=== PATIENT | female | born 1950 | race Caucasian/White ===

== ENCOUNTER 2025-04-16 12:50 | Inpatient (IN) ==
--- NOTE | 2025-04-16 13:25 | XRay Report ---
XR chest 1V portable CLINICAL HISTORY: Chest pain, nonspecific COMPARISON STUDY: None FINDINGS: Thoracic spine neurostimulator is present. There is moderate cardiomegaly without pulmonary vascular congestion. There is bandlike opacity at the left mid to lower lung. No other consolidation or pleural effusion. No pneumothorax. IMPRESSION: Opacity at the left mid and lower lung could represent scarring, atelectasis, or early p neumonia. ACT 112: Negative or not required by law. Electronically signed by: Bj King M.D. 04/16/2025 1:24 PM
--- NOTE | 2025-04-16 13:41 | Emergency Department Note ---
Impression & Plan Atrial fibrillation with rapid ventricular response, Pneumonia, Elevated troponin I level, Acute exacerbation of CHF (congestive heart failure), Acute and chronic respiratory failure, Hypoalbuminemia, Chronic hyperglycemia ED Provider Note NAME: OPAL SORENSEN AGE: 75 SEX: F : 1950 ARRIVES VIA: Ambulance INFORMANT: Patient, EMS ED PROVIDER(S): Rm Watts DO CHIEF COMPLAINT: atrial fibrillation HPI: This is a 75-year-old female with the PMHx of hypertension, dyslipidemia, COPD, CKD and paroxysmal atrial fibrillation on chronic anticoagulation with apixaban and rate/rhythm control with sotalol presenting to [facility] for further evaluation of atrial fibrillation with RVR. Patient is accompanied by EMS who provide additional history. EMS reported the patient is currently residing at rehabilitation services after she had a fall with subsequent tibia/fibular fractures. Patient currently in a walking boot. Patient states that she has taken sotalol for a prolonged period of time. She states that she had multiple ablations performed at [facility]. Patient states that since she has been at the rehabilitation facility, they have not given her her sotalol. She states that she noted she was not feeling well today and they found her to be in atrial fibrillation with RVR. Patient reports mild shortness of breath. She reports ongoing cough as well as congestion. Patient states she was recently treated for pneumonia. She states that she feels like she has not improved. She is unsure if she is currently on antibiotics. They deny fever or chills. She denies chest pain but does note chest palpitation secondary to her atrial fibrillation. They deny abdominal pain, nausea and vomiting. No urinary complaints. No recent changes in bowel movements. Patient denies recent changes in medications or OTC supplements. Patient offers no other complaints, today. ADDITIONAL HISTORY OBTAINED: Per HPI Chronic Medical/Social Conditions Affecting Care: Per HPI PAST MEDICAL HISTORY: See Below PAST SURGICAL HISTORY: See Below FAMILY HISTORY: See Below SOCIAL HISTORY: See Below HOME MEDICATIONS: See Below ALLERGIES: See Below VITALS: See Below PHYSICAL EXAMINATION: GENERAL: Sitting up in bed, alert, well appearing, well nourished, no distress, non-toxic EYE EXAM: normal conjunctiva. PERRL and EOM's grossly intact. OROPHARYNX: no exudate, no erythema, lips, buccal mucosa, and tongue normal and mucous membranes are moist NECK: supple, no nuchal rigidity, no adenopathy, non-tender LUNGS: Clear to auscultation. Normal chest wall mechanics HEART: no murmurs, tachycardic rate, irregular rhythm ABDOMEN: abdomen soft, non-tender, no masses, no rebound or guarding. BACK: Back is symmetrical on inspection and there is no deformity, no midline tenderness, no CVA tenderness. SKIN: no rashes. Numerous areas of bruising in various stages of healing. UPPER EXTREMITIES: upper extremities are grossly normal. LOWER EXTREMITIES: Bilateral lower extremity edema. Right lower extremity is in walking boot. NEURO EXAM: Normal sensorium, GCS 15, normal speech, no gross weakness of arms, no gross weakness of legs. MEDICAL DECISION MAKING: Differential diagnoses includes but not limited to atrial fibrillation with RVR, SVT, electrolyte derangements, dehydration, CHF exacerbation, COPD exacerbation, pneumonia, viral URI In summary, this is a 75 year old female who presented with atrial fibrillation with RVR. Differential as above. Nursing notes and pertinent past medical records reviewed. Vital signs reviewed and the patient is borderline hypotensive as well as significantly tachycardic. She is otherwise afebrile and hemodynamically stable. Patient's oxygenation status has been intermittently hypoxic. Patient does note that she wears oxygen at nighttime. Low-flow nasal cannula was applied with improvement. History and presentation revealed recent fall with rehabilitation admission for ambulatory status and difficulties with ADLs. Unfortunately, the patient's facility did not restart her sotalol and now she presents with atrial fibrillation with RVR. This has been a medication for her for a prolonged period of time. Notes that dose was increased in September to 120 mg twice daily. Physical examination revealed as above. As a result of my initial evaluation, the patient presents in atrial fibrillation with mild evidence of hypervolemia. Possible CHF exacerbation given her poor rate control. Plan for labs and checking electrolytes. Will also check chest x-ray. Patient has mild oxygen requirement at this time. Likely acute on chronic hypoxemic respiratory failure. Will give the patient a dose of Cardizem as she has already tried metoprolol at home without success. Patient has now been at least a week without sotalol. Patient will likely need to restart this as an inpatient given risk of QTc prolongation. Plan to discuss this further with cardiology. Diagnostics interpreted by me include EKG and cardiac monitoring as listed below: -Cardiac Monitoring: An order was placed for continuous cardiac monitoring. The monitor shows a rate of 90-150s with irregular rhythm. -ECG: Atrial fibrillation with RVR at a rate of [address] segment changes to suggest STEMI. Intervals are within normal limits Patient completed laboratory studies and imaging. Results independently interpreted by me are mild leukocytosis and anemia. Patient's coagulation studies are normal. No significant electrolyte derangements. Hypoalbuminemia noted. Patient does have an elevated BNP fitting with picture of hypervolemia. Troponin is mildly elevated but likely secondary to her atrial fibrillation with RVR. Patient does not have symptoms of angina. Do not feel that aspirin load or further evaluation for this is necessary at this time. The patient was initially given a loading dose of Cardizem and then subsequently started on a Cardizem drip. She had improvement in her rate but continues in atrial fibrillation. Spoke with Dr. Sanchez at 1410 regarding sotalol. Restart at 80 mg BID recommending with QTc monitoring. Patient was given her first dose of sotalol while in the emergency department. Patient's chest x-ray was independently interpreted by me as possible pneumonia. This fits with her mild leukocytosis and symptoms at this time. She was given doxycycline and ceftriaxone. Azithromycin avoided given risk of QTc prolongation. Ultimately, the decision was made to admit the patient for poorly controlled atrial fibrillation with RVR with possible mild heart failure exacerbation complicated by acute on chronic hypoxemic respiratory failure. I discussed the case with the hospitalist service via telephone/Tiger[employer] and they are agreeable to admit the patient to their services. Based on the above, including the patient's age, coexisting illnesses, labs, imaging, and exam findings the decision to treat as an inpatient. I discussed the patient with the hospitalist team who recommended admission to their services. They received the medications, treatments, interventions indicated above and their condition remained guarded. I discussed my findings with the patient and their family and they understand and agree with the treatment plan. All patient / family questions were answered to their satisfaction. Consults/Care Managements Discussions: Per MDM ER treatment provided: See above Procedures:none Critical Care: I have personally spent 42 minutes of critical care time in direct management of this patient. This includes bedside care, interpretation of diagnostic studies, and testing, discussion with consultants, patient, and family members, and other require inpatient management activities. This 42 minutes is in excess of all separately billable procedures. The chart was completed utilizing [employer] Speech voice recognition software. Grammatical errors, random word insertions, pronoun errors, and incomplete sentences are an occasional consequence of this system due to software limitations, ambient noise, and hardware issues. Any formal questions or concerns about the content, text, or information contained within the body of this dictation should be directly addressed to the physician for clarification. Past Med/Surg History Problem List (Updated 04/16/25 @ 17:52 by Rm Watts DO) Chronic hyperglycemia (Acute) Hypoalbuminemia (Acute) Acute and chronic respiratory failure (Acute) Acute exacerbation of CHF (congestive heart failure) (Acute) Elevated troponin I level (Acute) CKD (chronic kidney disease) COPD (chronic obstructive pulmonary disease) Dyslipidemia, goal LDL below 100 HTN (hypertension) Pneumonia (Acute) Atrial fibrillation with rapid ventricular response (Acute) Social History Smoking Status: Former smoker Tobacco Type: Cigarettes Preferred Language: Estonian Feels Safe at Home: Yes Allergies Allergies Allergy/AdvReac Type Severity Reaction Status Date / Time adhesive tape Allergy Intermediate SKIN Verified 04/16/25 16:17 BLISTERED latex Allergy Intermediate SKIN Verified 04/16/25 16:17 BLISTERED furosemide [From Lasix] Allergy Unknown SEE COMMENT Verified 04/16/25 16:17 duloxetine AdvReac Intermediate Vomiting Verified 04/16/25 16:17 Home Meds Home Medications Medication Instructions Recorded Confirmed Saccharomyces boulardii 250 mg 500 mg PO BID 04/16/25 04/16/25 capsule (Florastor) acetaminophen 325 mg tablet 650 mg PO Q4H PRN Pain (Scale 04/16/25 04/16/25 (Tylenol) Score 1-3) acetaminophen 500 mg tablet 500 mg PO Q4H PRN FEVER >100.5 04/16/25 04/16/25 (Tylenol Extra Strength) albuterol sulfate 2.5 mg/3 mL 2.5 mg inhalation Q6H PRN Wheezing 04/16/25 04/16/25 (0.083 %) solution for nebulization apixaban 5 mg tablet (Eliquis) 5 mg PO BID 04/16/25 04/16/25 aspirin 81 mg tablet,delayed 81 mg PO DAILY 04/16/25 04/16/25 release bisacodyl 10 mg rectal suppository 10 mg MS DAILY PRN Constipation 04/16/25 04/16/25 bumetanide 2 mg tablet 2 mg PO DAILYBB 04/16/25 04/16/25 cholecalciferol (vitamin D3) 50 50 mcg PO DAILY 04/16/25 04/16/25 mcg (2,000 unit) capsule (Vitamin D3) dextromethorphan-guaifenesin 30 1 tab PO Q12H 04/16/25 04/16/25 mg-600 mg tablet extended [id number] hr (Mucinex DM) diclofenac sodium 1 % topical gel 2 g topical TID 04/16/25 04/16/25 docusate sodium 100 mg capsule 100 mg PO BID PRN Constipation 04/16/25 04/16/25 empagliflozin 10 mg tablet 10 mg PO DAILY 04/16/25 04/16/25 (Jardiance) fluticasone fur. 200 mcg-umeclid 1 inh inhalation DAILY 04/16/25 04/16/25 62.5 mcg-vilant 25 mcg inhalat.powder (Trelegy Ellipta) folic acid 1 mg tablet 1 mg PO DAILY 04/16/25 04/16/25 gabapentin 300 mg capsule 300 mg PO BID 04/16/25 04/16/25 insulin aspart U-100 100 unit/mL 1 sliding scale dose subcut ACHS 04/16/25 04/16/25 subcutaneous solution (Novolog PRN BSG CONTROL U-100 Insulin aspart) ipratropium 0.5 mg-albuterol 3 mg 3 ml inhalation QID 04/16/25 04/16/25 (2.5 mg base)/3 mL nebulization soln losartan 25 mg tablet 25 mg PO DAILY 04/16/25 04/16/25 magnesium oxide 400 mg PO BID 04/16/25 04/16/25 melatonin 3 mg tablet 9 mg PO HS 04/16/25 04/16/25 montelukast 10 mg tablet 10 mg PO PM 04/16/25 04/16/25 (Singulair) multivitamin 1 tab PO DAILY 04/16/25 04/16/25 ondansetron HCl 4 mg tablet 4 mg PO Q6H PRN NAUSEA/VOMITING 04/16/25 04/16/25 pantoprazole 40 mg tablet,delayed 40 mg PO DAILYBB 04/16/25 04/16/25 release polyethylene glycol 3350 17 17 g PO QDL PRN Constipation 04/16/25 04/16/25 gram/dose oral powder (Miralax) potassium chloride 20 mEq 20 meq PO DAILY 04/16/25 04/16/25 tablet,extended release(part/cryst) prednisone 10 mg tablet 10 mg PO DIRECTED 04/16/25 04/16/25 sennosides 8.6 mg-docusate sodium 1 tab-cap PO QDL PRN Constipation 04/16/25 04/16/25 50 mg tablet (Senokot-S) sodium chloride 0.9 % (flush) 5 ml IV Q8H 04/16/25 04/16/25 (Normal Saline Flush 0.9 % injection syringe) sodium phosphates 19 gram-7 118 ml MS DAILY PRN Constipation 04/16/25 04/16/25 gram/118 mL enema (Fleet Enema) thiamine HCl (vitamin B1) 100 mg 100 mg PO DAILY 04/16/25 04/16/25 tablet (Vitamin B-1) tramadol 50 mg tablet 50 mg PO Q12H PRN Pain (Scale 04/16/25 04/16/25 Score 4-10) triamcinolone acetonide 0.1 % 1 applic topical BID PRN Rash 04/16/25 04/16/25 topical cream Results & Data (ED) Vital Signs Vital Signs - 24 hr 04/16/25 12:58 04/16/25 12:58 04/16/25 12:58 Temperature 37.0 C Temperature Source Oral Pulse Rate 135 H Pulse Rate [Apical] Respiratory Rate 16 Respiratory Effort / Characteristics Non-Labored Spontaneous Non-Labored Spontaneous Respiratory Depth Normal Blood Pressure 150/126 H Blood Pressure Mean 134 Pulse Oximetry 97 88 L Oxygen Delivery Method Nasal Cannula Nasal Cannula Nasal Cannula Oxygen Flow Rate 2 2 0 Sepsis Recent Fever Within 48 Hours No Sepsis New/Unexplained Change in Mental Status No Sepsis Action Taken by Nursing No Action Required Oxygen Flow Rate - Titration 2 Pulse Oximetry Post Tiitration 97 04/16/25 12:58 04/16/25 12:58 04/16/25 13:31 Temperature Temperature Source Pulse Rate 135 H 129 H Pulse Rate [Apical] 135 H Respiratory Rate 16 16 Respiratory Effort / Characteristics Respiratory Depth Blood Pressure Blood Pressure Mean Pulse Oximetry 97 97 Oxygen Delivery Method Nasal Cannula Nasal Cannula Oxygen Flow Rate 2 2 Sepsis Recent Fever Within 48 Hours Sepsis New/Unexplained Change in Mental Status Sepsis Action Taken by Nursing Oxygen Flow Rate - Titration Pulse Oximetry Post Tiitration 04/16/25 13:38 04/16/25 13:38 04/16/25 13:41 Temperature Temperature Source Pulse Rate 135 H 144 H Pulse Rate [Apical] Respiratory Rate 16 19 Respiratory Effort / Characteristics Respiratory Depth Blood Pressure 97/64 L Blood Pressure Mean 75 Pulse Oximetry 88 L 97 97 Oxygen Delivery Method Nasal Cannula Nasal Cannula Oxygen Flow Rate 0 2 Sepsis Recent Fever Within 48 Hours Sepsis New/Unexplained Change in Mental Status Sepsis Action Taken by Nursing Oxygen Flow Rate - Titration 2 Pulse Oximetry Post Tiitration 97 04/16/25 13:45 04/16/25 14:19 04/16/25 14:27 Temperature Temperature Source Pulse Rate 93 H 112 H 115 H Pulse Rate [Apical] Respiratory Rate 20 17 19 Respiratory Effort / Characteristics Respiratory Depth Blood Pressure 101/69 95/64 L 111/68 Blood Pressure Mean 89 68 91 Pulse Oximetry 99 98 98 Oxygen Delivery Method Oxygen Flow Rate Sepsis Recent Fever Within 48 Hours Sepsis New/Unexplained Change in Mental Status Sepsis Action Taken by Nursing Oxygen Flow Rate - Titration Pulse Oximetry Post Tiitration 04/16/25 14:36 04/16/25 14:45 04/16/25 14:47 Temperature Temperature Source Pulse Rate 122 H 103 H 115 H Pulse Rate [Apical] Respiratory Rate 21 20 14 Respiratory Effort / Characteristics Respiratory Depth Blood Pressure 85/65 L 91/69 L 91/69 L Blood Pressure Mean 73 72 76 Pulse Oximetry 98 Oxygen Delivery Method Room Air Oxygen Flow Rate Sepsis Recent Fever Within 48 Hours Sepsis New/Unexplained Change in Mental Status Sepsis Action Taken by Nursing Oxygen Flow Rate - Titration Pulse Oximetry Post Tiitration 04/16/25 15:01 04/16/25 15:15 04/16/25 15:30 Temperature Temperature Source Pulse Rate 107 H 113 H 127 H Pulse Rate [Apical] Respiratory Rate 17 18 16 Respiratory Effort / Characteristics Respiratory Depth Blood Pressure 84/66 L 103/77 111/73 Blood Pressure Mean 75 86 85 Pulse Oximetry 99 97 Oxygen Delivery Method Oxygen Flow Rate Sepsis Recent Fever Within 48 Hours Sepsis New/Unexplained Change in Mental Status Sepsis Action Taken by Nursing Oxygen Flow Rate - Titration Pulse Oximetry Post Tiitration 09/22/25 15:55 Temperature Temperature Source Pulse Rate 115 H Pulse Rate [Apical] Respiratory Rate 19 Respiratory Effort / Characteristics Respiratory Depth Blood Pressure 102/72 Blood Pressure Mean 83 Pulse Oximetry Oxygen Delivery Method Oxygen Flow Rate Sepsis Recent Fever Within 48 Hours Sepsis New/Unexplained Change in Mental Status Sepsis Action Taken by Nursing Oxygen Flow Rate - Titration Pulse Oximetry Post Tiitration Laboratory Data 04/16/25 13:54 04/16/25 13:54 Lab Results 04/16/25 Range/Units 13:54 WBC 12.87 H (4.8-10.8) K/ul RBC 3.48 L (4.20-5.40) M/uL Hgb 11.7 L (12.0-16.0) g/dl Hct 36.8 L (37.0-47.0) % MCV 105.7 H (80.0-100.0) fL MCH 33.6 (25.0-34.0) pg MCHC 31.8 L (32.0-36.0) g/dL RDW Std Deviation 56.9 H (36.4-46.3) fL RDW Coeff of Nora 14.8 H (11.5-14.5) % Plt Count 328 (130-400) K/uL MPV 10.9 (9.4-12.4) fL Immature Gran % (Auto) 6.1 % Neut % (Auto) 86.4 % Lymph % (Auto) 3.9 % [place] % (Auto) 2.9 % Eos % (Auto) 0.2 % Baso % (Auto) 0.5 % Neut # (Auto) 11.13 H (1.40-6.50) K/uL Lymph # (Auto) 0.50 L (1.20-3.40) K/uL [place] # (Auto) 0.37 (0.11-0.59) K/uL Eos # (Auto) 0.02 (0.00-0.50) K/uL Baso # (Auto) 0.06 (0.00-0.20) K/uL Immature Gran # (Auto) 0.79 H (0.01-0.20) K/uL Absolute Nucleated RBC 0.11 (0.00-0.12) K/uL Nucleated RBC % (auto) 0.9 % Hypersegmented Neuts 1+ Toxic Vacuolation 1+ Polychromasia 1+ Basophilic Stippling 1+ PT 11.3 (9.0-12.0) Seconds INR 1.0 (0.9-1.1) APTT 25 (21-31) Seconds PTT Ratio 0.9 Sodium 136 (136-145) mmol/L Potassium 4.5 (3.5-5.1) mmol/L Chloride 94 L (98-107) mmol/L Carbon Dioxide 33 H (21-32) mmol/L Anion Gap 9 (3-11) BUN 34 H (6-23) mg/dl Creatinine 0.72 (0.6-1.2) mg/dl Est Cr Clr Drug Dosing 61.3 ml/min eGFR 88.23 BUN/Creatinine Ratio 47.2 H (10-20) Glucose 153 H (70-99(Fasting)) mg/dl Calcium 9.0 (8.6-10.3) mg/dl Phosphorus 3.4 (2.5-4.9) mg/dl Magnesium 2.1 (1.7-2.4) mg/dl Total Bilirubin 0.6 (0.2-1.0) mg/dl AST 24 (13-39) U/L ALT 32 (7-52) U/L Alkaline Phosphatase 77 (34-104) U/L Troponin I High Sens 64.0 H* (0-14) pg/ml B-Natriuretic Peptide 930 H (0-100) pg/ml Total Protein 6.2 (6.0-8.3) gm/dl Albumin 3.3 L (3.4-5.0) gm/dl Globulin 2.9 (2.5-4.0) gm/dl Albumin/Globulin Ratio 1.1 (0.9-2) Lipase 42 (11-82) U/L Administered Medications Diltiazem HCl 125 mg/ Dextrose 125 mls @ 0 mls/hr IV .Q0M [facility]; Protocol Stop: 05/16/25 14:14 Last Titration: 04/16/25 15:21 Dose: 0 mg/hr, 0 mls/hr Documented By: LATESHA Co-signed By: LACEY Admin: 04/16/25 14:31 Dose: 5 mg/hr, 5 mls/hr Documented By: ANT Co-signed By: TYLER Discontinued Medications Diltiazem HCl (Diltiazem Hcl 5 Mg/Ml 5 Ml Vial) 15 mg IV NOW STA Stop: 04/16/25 13:03 Last Admin: 04/16/25 13:42 Dose: 15 mg Documented By: TYLER Co-signed By: NESTOR Doxycycline Hyclate (Doxycycline Hyclate 100 Mg Cap) 100 mg PO NOW STA Stop: 04/16/25 14:47 Last Admin: 04/16/25 15:22 Dose: 100 mg Documented By: ANT Ceftriaxone Sodium (Rocephin) 2,000 mg in 50 mls @ 100 mls/hr IV NOW STA Stop: 04/16/25 15:15 Last Infusion: 04/16/25 15:40 Dose: Infused Documented By: Admin: 04/16/25 15:10 Dose: 100 mls/hr Documented By: LACEY Miscellaneous (Stat Iv Infusion Titration Per Protocol) 1 each N/A NOW STA Stop: 04/16/25 14:03 Last Admin: 04/16/25 14:13 Dose: Not Given Documented By: ANT Sotalol HCl (Sotalol Hcl 80 Mg Tab) 80 mg PO NOW ONE Stop: 04/16/25 14:32 Last Admin: 04/16/25 15:17 Dose: Not Given Documented By: ANT Sotalol HCl (Sotalol Hcl 80 Mg Tab) 80 mg PO NOW ONE Stop: 04/16/25 15:28 Last Admin: 04/16/25 15:39 Dose: 80 mg Documented By: ANT Imaging Data Radiologist's Impression: Chest X-Ray 04/16/25 13:02 XR chest 1V portable CLINICAL HISTORY: Chest pain, nonspecific COMPARISON STUDY: None FINDINGS: Thoracic spine neurostimulator is present. There is moderate cardiomegaly without pulmonary vascular congestion. There is bandlike opacity at the left mid to lower lung. No other consolidation or pleural effusion. No pneumothorax. IMPRESSION: Opacity at the left mid and lower lung could represent scarring, atelectasis, or early pneumonia. ACT 112: Negative or not required by law. Electronically signed by: Bj King M.D. 04/16/2025 1:24 PM Discharge Plan Visit Data Chief Complaint: Cardiac Assessment Stated Complaint: CARDIAC ASESSMENT ED Provider: Rm Watts Discharge Problem: Atrial fibrillation with rapid ventricular response, Pneumonia, Elevated troponin I level, Acute exacerbation of CHF (congestive heart failure), Acute and chronic respiratory failure, Hypoalbuminemia, Chronic hyperglycemia Patient Disposition: Admitted As Inpatient Condition: Serious Discharge Instructions Interventions: ED Discharge Assessment Last Done: 04/16/25 17:16 Forms Stand Alone Forms: My [facility] Prescriptions Prescriptions: No Action multivitamin Tablet 1 tab PO DAILY acetaminophen [Tylenol] 325 mg Tablet 650 mg PO Q4H PRN (Reason: Pain (Scale Score 1-3)) prednisone 10 mg Tablet 10 mg PO DIRECTED Rx Instructions: STARTED 04/14/25: 30 MG X 3 DAYS, THEN 20 MG X 3 DAYS, THEN 10 MG X 3 DAYS, ENDS 04/23/25 ipratropium-albuterol 0.5 mg-3 mg(2.5 mg base)/3 mL Solution For Nebulization 3 ml INHALATION QID bumetanide 2 mg Tablet 2 mg PO DAILYBB albuterol sulfate 2.5 mg /3 mL (0.083 %) Solution For Nebulization 2.5 mg INHALATION Q6H PRN (Reason: Wheezing) ondansetron HCl [Zofran] 4 mg Tablet 4 mg PO Q6H PRN (Reason: NAUSEA/VOMITING) sennosides-docusate sodium [Senokot-S] 8.6-50 mg Tablet 1 tab-cap PO QDL PRN (Reason: Constipation) thiamine HCl (vitamin B1) [Vitamin B-1] 100 mg Tablet 100 mg PO DAILY melatonin 3 mg Tablet 9 mg PO HS aspirin 81 mg Tablet,Delayed Release (Dr/Ec) 81 mg PO DAILY tramadol 50 mg Tablet 50 mg PO Q12H PRN (Reason: Pain (Scale Score 4-10)) acetaminophen [Tylenol Extra Strength] 500 mg Tablet 500 mg PO Q4H PRN (Reason: FEVER >100.5) triamcinolone acetonide 0.1 % Cream 1 applic TOPICAL BID PRN (Reason: Rash) potassium chloride 20 mEq Tablet,Er Particles/Crystals 20 meq PO DAILY insulin aspart U-100 [Novolog U-100 Insulin aspart] 100 unit/mL Solution 1 sliding scale dose SUBCUT ACHS PRN (Reason: BSG CONTROL) Rx Instructions: BSG <70=HYPOGLYCEMIA PROTOCOL, BSG 70-130=0 UNITS, BSG 131-180=4 UNITS, 181- 240=8 UNITS, 241-300=10 UNITS, 301-350=12 UNITS, 351-400=16 UNITS, >400=CALL bisacodyl 10 mg Suppository 10 mg MS DAILY PRN (Reason: Constipation) pantoprazole 40 mg Tablet,Delayed Release (Dr/Ec) 40 mg PO DAILYBB losartan 25 mg Tablet 25 mg PO DAILY Fleet Enema 19-7 gram/118 mL Enema 118 ml MS DAILY PRN (Reason: Constipation) docusate sodium 100 mg Capsule 100 mg PO BID PRN (Reason: Constipation) gabapentin 300 mg Capsule 300 mg PO BID folic acid 1 mg Tablet 1 mg PO DAILY montelukast [Singulair] 10 mg Tablet 10 mg PO PM polyethylene glycol 3350 [Miralax] 17 gram/dose Powder 17 g PO QDL PRN (Reason: Constipation) Mucinex DM 30-600 mg Tablet Extended Release 12 Hr 1 tab PO Q12H sodium chloride 0.9 % (flush) [Normal Saline Flush] Syringe 5 ml IV Q8H Rx Instructions: administer before and after IV drug administration as part of [facility] protocol Saccharomyces boulardii [Florastor] 250 mg Capsule 500 mg PO BID diclofenac sodium [Voltaren] 1 % Gel 2 g TOPICAL TID cholecalciferol (vitamin D3) [Vitamin D3] 50 mcg (2,000 unit) Capsule 50 mcg PO DAILY Eliquis 5 mg Tablet 5 mg PO BID Jardiance 10 mg Tablet 10 mg PO DAILY magnesium oxide 400 mg magnesium Tablet 400 mg PO BID Trelegy Ellipta 200-62.5-25 mcg Blister With Device 1 inh INHALATION DAILY Referrals Referrals: PCP,NO [Physician] -
[2025-04-16] MEDS: STAT IV Infusion **Titration per Protocol STA (14:13)
[2025-04-16 14:16] LABS: Hematocrit (blood only) 36.8 % (37.0-47.0); Hemoglobin 11.7 g/dl (12.0-16.0); Mean Corpuscular Hemoglobin 33.6 pg (25.0-34.0); Mean Corpuscular Volume 105.7 fL (80.0-100.0); Platelet Count 328 K/uL (130-400); RDW Standard Deviation 56.9 fL (36.4-46.3); Red Blood Count 3.48 M/uL (4.20-5.40); White Blood Count 12.87 K/ul (4.8-10.8)
[2025-04-16 14:37] LABS: Alanine Aminotransferase 32.0 U/L (7-52); Albumin Globulin Ratio 1.1 (0.9-2); Albumin Level 3.3 gm/dl (3.4-5.0); Alkaline Phosphatase 77.0 U/L (34-104); Anion Gap 9.0 (3-11); Bilirubin,Total 0.6 mg/dl (0.2-1.0); Blood Urea Nitrogen 34.0 mg/dl (6-23); Calcium 9.0 mg/dl (8.6-10.3); Carbon Dioxide 33.0 mmol/L (21-32); Chloride 94.0 mmol/L (98-107); Creatinine Clr Calc Pharmacy 61.3 ml/min; Globulin 2.9 gm/dl (2.5-4.0); Glucose 153.0 mg/dl (70-99(Fasting)); Lipase 42.0 U/L (11-82); Magnesium 2.1 mg/dl (1.7-2.4); Potassium 4.5 mmol/L (3.5-5.1); Sodium 136.0 mmol/L (136-145); Total Protein 6.2 gm/dl (6.0-8.3)
[2025-04-16 14:38] LABS: Basophilic Stippling 1+; Hypersegmented Neutrophils 1+; Immature Granulocytes # (auto) 0.79 K/uL (0.01-0.20); Immature Granulocytes % (auto) 6.1 %; Polychromasia 1+; Toxic Vacuolation 1+
[2025-04-16 14:41] LABS: INR 1.0 (0.9-1.1); Partial Thromboplastin Time 25 Seconds (21-31); Prothrombin Time 11.3 Seconds (9.0-12.0)
[2025-04-16] MEDS: SOTALOL HCL 80 MG TAB PO ONE ×2 (15:10→15:39)
[2025-04-16] MEDS: cefTRIAXone SODIUM 2,000 MG/50 ML BAG IV STA (15:10)
[2025-04-16] MEDS: DOXYCYCLINE HYCLATE 100 MG CAP PO STA (15:22)
--- NOTE | 2025-04-16 15:24 | Electrocardiogram Report ---
Test Reason : Blood Pressure : */* mmHG Vent. Rate : 144 BPM Atrial Rate : * BPM P-R Int : * ms QRS Dur : 94 ms QT Int : 306 ms P-R-T Axes : * 49 155 degrees QTcB Int : 473 ms Atrial fibrillation with rapid ventricular response Low voltage QRS Septal infarct , age undetermined Abnormal ECG No previous ECGs available Confirmed by Josesito Mallory ([id number]) on 04/16/2025 3:24:33 PM Referred By: Confirmed By: Josesito Mallory
--- NOTE | 2025-04-16 15:40 | Cardiology Consultation ---
Date of Consultation April 16, 2025 Assessment & Plan (1) Atrial fibrillation with rapid ventricular response: (2) Pneumonia: (3) HTN (hypertension): (4) Dyslipidemia, goal LDL below 100: (5) COPD (chronic obstructive pulmonary disease): (6) CKD (chronic kidney disease): Plan 75-year-old female admitted to [facility] on April 16, 2025 from [facility] with recurrent atrial fibrillation with a rapid ventricular response. [id number] Score 5 points with patient chronically prescribed Eliquis anticoagulation (? interrupted when hospitalized at [facility]' post fall circa 2 weeks ago). Options of management discussed. We specifically discussed rate versus rhythm control strategies, resumption of antiarrhythmic therapy with sotalol, alternative antiarrhythmic therapy including the risks and benefits of amiodarone, risks and benefits of continuing versus discontinuing anticoagulation, etc. Patient currently asymptomatic. Via shared decision making, will proceed as follows. Recommendation/Plan: * Trial rate control strategy. * Discontinue IV diltiazem secondary to hypotension * Hold ARB secondary to hypotension * Utilize IV digoxin, adding metoprolol succinate as blood pressure permits * Continue anticoagulation * Maintain telemetry * Check TSH. * Maintain normokalemia and normomagnesemia. * Refer for resting echocardiography in AM Supervising Physician Co-Signing Physician Notes Patient seen and examined. Past medical history, surgical history, social history and family history have been reviewed. The medical record and all the above studies have been reviewed. Case DW FELIPE including management. Atrial fibrillation with rapid ventricular response Pneumonia HTN Dyslipidemia COPD CKD patient is unlikely to be a successful candidate for antiarrhythmic startegy; rate control strategy was dw patient will start Dig metoprolol if BP allows increase fluid intake abx as per primary team correct and f/u electrolytes keep K between 4 and 4.5 and Mg 2 and 2.5 when on Digoxin f/u renal function continue anticoagulation adjust rate control meds keeping HR between 60 to 100 BPM and systolic BP between 100-140 mmHg avoid hypovolemia keep patient euvolemic salt restriction History of Present Illness Reason for Consultation: Atrial fibrillation with a rapid ventricular response Requesting Physician: [facility], Dr. Anand Attending Physician: [facility] [place] [facility], TBD History of Present Illness Arabella Padilla is a very pleasant 75-year-old female who presented to the [facility] ER from [facility] on Wednesday, April 16, 2025 secondary to atrial fibrillation with rapid ventricular response. Two weeks ago patient suffered a mechanical fall with resultant right tib-fib fracture. There was no loss of consciousness, "I had my wits about me the whole time." Patient notes that her legs went to jelly before she ended up on the ground. Patient admitted to [facility] times five days where she was treated for the fall and fracture. Course complicated by pneumonia and urinary tract infection. Following the hospital course in [facility] patient was transferred to [facility] in [place] for rehabilitation. 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 Shortly thereafter a nurse checked her vital signs and noticed that her heart rate was elevated up to 160 bpm. She that it was at that time she realized she had been off of sotalol. At [facility] patient received IV and oral metoprolol and was subsequently transferred to [facility] for further evaluation and treatment. Patient believes she has not had any interruption in apixaban (Eliquis) anticoagulation throughout the above. EKG on presentation to [facility] revealed atrial fibrillation with rapid ventricular response, 144 bpm with low voltage QRS. Possible old septal infarct. QTc 473 ms. Laboratory work on presentation notable for an elevated white blood cell count, 12.87. H&H were 11.7 and 36.8. MCV elevated 105.7. Platelet count normal at 328K. Chemistry panel demonstrated the following: Sodium 136. Potassium 4.5. Bicarb 33. BUN 34. Creatinine 0.72. Chemistry panel demonstrated the following: Sodium 136. Potassium 4.5. Bicarb 33. BUN 34. Creatinine 0.72. Calcium 9.0. Magnesium 2.1. AST 24. ALT 32. Alk phos 77. High-sensitivity troponin elevated at 64.0 pg/mL Patient denies chest pain, shortness of breath out of her norm, or tachypalpitations. She notes a cough productive of clear phlegm only, at times very difficult to expectorate. She denies fevers. Denies chills. She notes diffuse edema, without worsening orthopnea, or PND. No dizziness, near syncope, or syncope. Ecchymosis noted all over her body, with melena, hematochezia, or gross hematuria. Patient describes a longstanding history of atrial fibrillation dating back to 2011, multiple prior cardioversions. On December 16, 2011 she underwent PVI. On November 02, 2012 she underwent redo PVI ablation. Patient underwent CTI ablation of atrial flutter on March 21, 2012. Despite 2 prior PVI ablations patient continued to have atrial fibrillation. After failing flecainide, since September 2021, she has been treated with sotalol 120 mg twice per day. Per documentation, left atrium 4.6 cm in August 2023. Problem List: Atrial fibrillation, as above Atrial flutter status post CTI ablation on March 21, 2012 Prior hospitalization for congestive heart failure, [place], May 2022 PAD, angiography and unknown intervention within the last year, [facility] COPD Hypertension Dyslipidemia Stage III chronic kidney disease Spinal stenosis, status post decompression and fusion, July 2018, spinal cord stimulator Arthritis, ? rheumatoid GERD Rheumatic fever as a young adult Prior lumpectomy Tonsillectomy Tubal ligation Sleep apnea testing negative in 2018. Family History: Positive for CAD in parents. Social History: Reformed smoker having quit 8 years ago after smoking 1 pack/day x 45 years. Social alcohol. Prior medical marijuana card. Lives in [place], [place]. at the age of 53. Two children. Allergies Allergy/AdvReac Type Severity Reaction Status Date / Time adhesive tape Allergy Intermediate SKIN Verified 04/16/25 16:17 BLISTERED latex Allergy Intermediate SKIN Verified 04/16/25 16:17 BLISTERED furosemide [From Lasix] Allergy Unknown SEE COMMENT Verified 04/16/25 16:17 duloxetine AdvReac Intermediate Vomiting Verified 04/16/25 16:17 Home Medications Medication Instructions Recorded Confirmed Type Saccharomyces boulardii 250 mg 500 mg PO BID 04/16/25 04/16/25 History capsule (Florastor) acetaminophen 325 mg tablet 650 mg PO Q4H PRN Pain (Scale 04/16/25 04/16/25 History (Tylenol) Score 1-3) acetaminophen 500 mg tablet 500 mg PO Q4H PRN FEVER >100.5 04/16/25 04/16/25 History (Tylenol Extra Strength) albuterol sulfate 2.5 mg/3 mL 2.5 mg inhalation Q6H PRN Wheezing 04/16/25 04/16/25 History (0.083 %) solution for nebulization apixaban 5 mg tablet (Eliquis) 5 mg PO BID 04/16/25 04/16/25 History aspirin 81 mg tablet,delayed 81 mg PO DAILY 04/16/25 04/16/25 History release bisacodyl 10 mg rectal suppository 10 mg [place] DAILY PRN Constipation 04/16/25 04/16/25 History bumetanide 2 mg tablet 2 mg PO DAILYBB 04/16/25 04/16/25 History cholecalciferol (vitamin D3) 50 50 mcg PO DAILY 04/16/25 04/16/25 History mcg (2,000 unit) capsule (Vitamin D3) dextromethorphan-guaifenesin 30 1 tab PO Q12H 04/16/25 04/16/25 History mg-600 mg tablet extended [id number] hr (Mucinex DM) diclofenac sodium 1 % topical gel 2 g topical TID 04/16/25 04/16/25 History docusate sodium 100 mg capsule 100 mg PO BID PRN Constipation 04/16/25 04/16/25 History empagliflozin 10 mg tablet 10 mg PO DAILY 04/16/25 04/16/25 History (Jardiance) fluticasone fur. 200 mcg-umeclid 1 inh inhalation DAILY 04/16/25 04/16/25 History 62.5 mcg-vilant 25 mcg inhalat.powder (Trelegy Ellipta) folic acid 1 mg tablet 1 mg PO DAILY 04/16/25 04/16/25 History gabapentin 300 mg capsule 300 mg PO BID 04/16/25 04/16/25 History insulin aspart U-100 100 unit/mL 1 sliding scale dose subcut ACHS 04/16/25 04/16/25 History subcutaneous solution (Novolog PRN BSG CONTROL U-100 Insulin aspart) ipratropium 0.5 mg-albuterol 3 mg 3 ml inhalation QID 04/16/25 04/16/25 History (2.5 mg base)/3 mL nebulization soln losartan 25 mg tablet 25 mg PO DAILY 04/16/25 04/16/25 History magnesium oxide 400 mg PO BID 04/16/25 04/16/25 History melatonin 3 mg tablet 9 mg PO HS 04/16/25 04/16/25 History montelukast 10 mg tablet 10 mg PO PM 04/16/25 04/16/25 History (Singulair) multivitamin 1 tab PO DAILY 04/16/25 04/16/25 History ondansetron HCl 4 mg tablet 4 mg PO Q6H PRN NAUSEA/VOMITING 04/16/25 04/16/25 History pantoprazole 40 mg tablet,delayed 40 mg PO DAILYBB 04/16/25 04/16/25 History release polyethylene glycol 3350 17 17 g PO QDL PRN Constipation 04/16/25 04/16/25 History gram/dose oral powder (Miralax) potassium chloride 20 mEq 20 meq PO DAILY 04/16/25 04/16/25 History tablet,extended release(part/cryst) prednisone 10 mg tablet 10 mg PO DIRECTED 04/16/25 04/16/25 History sennosides 8.6 mg-docusate sodium 1 tab-cap PO QDL PRN Constipation 04/16/25 04/16/25 History 50 mg tablet (Senokot-S) sodium chloride 0.9 % (flush) 5 ml IV Q8H 04/16/25 04/16/25 History (Normal Saline Flush 0.9 % injection syringe) sodium phosphates 19 gram-7 118 ml [place] DAILY PRN Constipation 04/16/25 04/16/25 History gram/118 mL enema (Fleet Enema) thiamine HCl (vitamin B1) 100 mg 100 mg PO DAILY 04/16/25 04/16/25 History tablet (Vitamin B-1) tramadol 50 mg tablet 50 mg PO Q12H PRN Pain (Scale 04/16/25 04/16/25 History Score 4-10) triamcinolone acetonide 0.1 % 1 applic topical BID PRN Rash 04/16/25 04/16/25 History topical cream Patient History Social History Smoking Status: Former smoker Tobacco Type: Cigarettes Preferred Language: Mongolian Feels Safe at Home: Yes Review of Systems Review of Systems: Complete Review of Systems is as stated above, negative, or noncontributory. Physical Exam Physical Exam: General: A&Ox3. NAD. HENT: Normocephalic. Atraumatic. Eyes: PER. Conjunctiva pink, sclera pale Neck: No over JVD. Carotid bruits. Heart: Irregularly irregular at 130 bpm. Soft systolic murmur. No diastolic murmur. Lungs: Diminished. Decreased. Scattered rhonchi. Abdomen: +BS. Soft. Nontender. No masses or organomegaly. Extremities: Marked ecchymosis noted on all extremities. 1+ edema. Limited neurological examination is without focal deficits. Pulses: Posterior tibial=1/4. Results & Data Vital Signs (Past 12 Hours) Vital Signs Temp Pulse Pulse Resp BP Pulse Ox O2 Del Method 04/16/25 15:01 107 H 17 84/66 L 99 04/16/25 14:47 115 H 14 91/69 L 98 Room Air 04/16/25 14:45 103 H 20 91/69 L 04/16/25 14:36 122 H 21 85/65 L 04/16/25 14:27 115 H 19 111/68 98 04/16/25 14:19 112 H 17 95/64 L 98 04/16/25 13:45 93 H 20 101/69 99 04/16/25 13:41 144 H 19 97/64 L 97 04/16/25 13:38 135 H 16 97 Nasal Cannula 04/16/25 13:38 88 L Nasal Cannula 04/16/25 13:31 129 H 04/16/25 12:58 135 H 16 97 Nasal Cannula 04/16/25 12:58 135 H 16 97 Nasal Cannula 04/16/25 12:58 88 L Nasal Cannula 04/16/25 12:58 Nasal Cannula 04/16/25 12:58 37.0 C 135 H 16 150/126 H 97 Nasal Cannula O2 Flow Rate 04/16/25 15:01 04/16/25 14:47 04/16/25 14:45 04/16/25 14:36 04/16/25 14:27 04/16/25 14:19 04/16/25 13:45 04/16/25 13:41 04/16/25 13:38 2 04/16/25 13:38 0 04/16/25 13:31 04/16/25 12:58 2 04/16/25 12:58 2 04/16/25 12:58 0 04/16/25 12:58 2 04/16/25 12:58 2 Laboratory Results Cardiac Enzymes 04/16/25 Range/Units 13:54 AST 24 (13-39) U/L Troponin I High Sens 64.0 H* (0-14) pg/ml B-Natriuretic Peptide 930 H (0-100) pg/ml Coagulation 04/16/25 Range/Units 13:54 PT 11.3 (9.0-12.0) Seconds APTT 25 (21-31) Seconds B-Natriuretic Peptide 930 H (0-100) pg/ml CBC 04/16/25 Range/Units 13:54 WBC 12.87 H (4.8-10.8) K/ul RBC 3.48 L (4.20-5.40) M/uL Hgb 11.7 L (12.0-16.0) g/dl Hct 36.8 L (37.0-47.0) % Plt Count 328 (130-400) K/uL Neut # (Auto) 11.13 H (1.40-6.50) K/uL Lymph # (Auto) 0.50 L (1.20-3.40) K/uL [place] # (Auto) 0.37 (0.11-0.59) K/uL Eos # (Auto) 0.02 (0.00-0.50) K/uL Baso # (Auto) 0.06 (0.00-0.20) K/uL Comprehensive Metabolic Panel 04/16/25 Range/Units 13:54 Sodium 136 (136-145) mmol/L Potassium 4.5 (3.5-5.1) mmol/L Chloride 94 L (98-107) mmol/L Carbon Dioxide 33 H (21-32) mmol/L BUN 34 H (6-23) mg/dl Creatinine 0.72 (0.6-1.2) mg/dl Glucose 153 H (70-99(Fasting)) mg/dl Calcium 9.0 (8.6-10.3) mg/dl AST 24 (13-39) U/L ALT 32 (7-52) U/L Alkaline Phosphatase 77 (34-104) U/L Total Protein 6.2 (6.0-8.3) gm/dl Albumin 3.3 L (3.4-5.0) gm/dl Intake and Output 04/16/25 04/16/25 04/16/25 06:59 14:59 22:59 Intake Total 54.167 / 54.167 Balance 54.167 / 54.167 Intake: IV 54.167 / 54.167 cefTRIAXone SODIUM 2,000 mg In 50 / 50 50 ml @ 100 mls/hr IV NOW STA Rx#:[id number] dilTIAZem HCL 125 mg In 4.167 / 4.167 Dextrose 5% 100 ml @ 5 MG/HR 5 mls/hr IV .Q24H [facility] Rx#: [id number] Other: Weight 71.2 kg Weight Measurement Method [email or web address] Patient Weight 04/17/25 06:59 Weight 71.2 kg Diagnostic Findings EKG as above. ER Telemetry: Atrial fibrillation with a rapid ventricular response. PG Care Time/CCT Total # of Minutes Spent Total Time Spent with Patient: Total time spent is greater than 50% in coordination of care (as documented) at patient's floor/unit and/or counseling patient. I spent a total of 55 minutes on the date of service in preparation, delivery, and documentation of the care provided to this patient excluding any time spent in the performance of separately billed services. This visit was a split-shared visit with the substantive portion of the medical decision making performed by the supervising direct response consultant/billing provider. Coding Level of Care Code 94503 IN/OBS CONSULT LVL 5,80M Diagnoses Atrial fibrillation with rapid ventricular response I48.91 Pneumonia J18.9 HTN (hypertension) I10 Dyslipidemia, goal LDL below 100 E78.5 COPD (chronic obstructive pulmonary disease) J44.9 CKD (chronic kidney disease) N18.9
--- NOTE | 2025-04-16 16:12 | History & Physical Report ---
Date of Service April 16, 2025 Assessment & Plan (1) Atrial fibrillation with rapid ventricular response: Plan: Patient is a 75 year old female with past medical history significant for COPD Stage II former smoker, CAD, HFpEF, Paroxysmal Afib on anticoagulation with Eliquis history of multiple ablations, HTN, CKD III, OA, macrocyctic anemia, PAD, h/o ETOH abuse, and others presenting with palpitations, cough. Transferred here from [facility] with tachycardia, heart rate 160's, palpitations, found to be in afib RVR and has been without rate control for over a week. Also with palpitations and nonproductive cough, feels like she can't get anything up. Patient was admitted to [facility] on 04/05/25 for weakness and fall s/p laminectomy 7 weeks prior to the fall. Imaging of right ankle showed nondisplaced right tib fib fracture. She was splinted with no surgical intervention. Hospitalization was complicated by a possible pneumonia and uti; discharged to [facility] on 04/10/25 for rehab. Patient was on sotalol BID dosing for Afib rate control, but this did not transfer when transitioning between facilities. Anticoagulation with Eliquis was given at [facility] Afib RVR Admit to PCU Tele EKG showing atrial fibrillation with rapid ventricular response, rate 144 bpm, QTc 473. Diltiazem 15 mg given. Cardiology consulted- recommend rate control with metoprolol and Dig-> Heart rates down to mid-70's now Holding Sotalol Echo ordered Cards to follow Acute Hypoxic Respiratory Failure 2/2 LLL pneumonia Leukocytosis noted on lab workup with WBC 12.87K. Opacity to left mid and lower lung found on Chest Xray. Hypoxia noted, with 2 LPM requirement. Cefepime given in the ED-> will continue Cefepime for pseudomonas coverage; will add doxy Biofire negative. sputum culture needed COPD EXACERBATION History of COPD 2/2 custodial smoking history. Prednisone 40mg po daily incentive spirometer and flutter valve for pulmonary toileting HFpEF BNP 930 Continue home diuretic Defer to Cardiology for additional recs on diuretics DVT Ppx: on Eliquis Code status: Full PCP: Dr. Kevin Salazar Dispo: Admit Patient seen in collaboration with Dr. Anand. Please see addendum.I spent a total of 65 minutes coordinating, documenting and providing care for this patient excluding time spent in the performance of separately billed services or time spent by another provider/Q. (2) Pneumonia: (3) COPD (chronic obstructive pulmonary disease): (4) Acute and chronic respiratory failure: History of Present Illness Primary Care Provider: Kevin Salazar DO Patient is a 75 year old female with past medical history significant for COPD Stage II former smoker, CAD, HFpEF, Paroxysmal Afib on anticoagulation with Eliquis history of multiple ablations, HTN, CKD III, OA, macrocyctic anemia, PAD, h/o ETOH abuse, and others presenting with palpitations, cough. Transferred here from [facility] with tachycardia, heart rate 160's, palpitations, found to be in afib RVR and has been without rate control for over a week. Also with palpitations and nonproductive cough, feels like she can't get anything up. Patient was admitted to [facility] on 04/05/25 for weakness and fall s/p laminectomy 7 weeks prior to the fall. Imaging of right ankle showed nondisplaced right tib fib fracture. She was splinted with no surgical intervention. Hospitalization was complicated by a possible pneumonia and uti; discharged to [facility] on 04/10/25 for rehab. Patient was on sotalol BID dosing for Afib rate control, but this did not transfer when transitioning between facilities. Anticoagulation with Eliquis was given at [facility] Denies chest pain, shortness of breath, N/V/D, focal deficits, numbness/tingling. In the emergency department, EKG showing atrial fibrillation with rapid ventricular response, rate 144 bpm, QTc 473. Diltiazem 15 mg given. Cardiology consulted for recommendations on resuming Sotalol and initially recommending resuming at half the regular dose with slow titration; however, BP's softer 80's/60's at times with HR 113-125. Given hypotension following diltiazem admin, recommendation for rate control with metoprolol suggested by Cardiology. Digoxin also given. Heart rates down to mid-70's. Leukocytosis noted on lab workup with WBC 12.87K. Opacity to left mid and lower lung found on Chest Xray. Hypoxia noted, with 2 LPM requirement. Biofire negative. History of COPD 2/2 custodial smoking history. Cefepime given in the ED. History obtained primarily from the patient and via outside records from [facility]. Allergies Allergy/AdvReac Type Severity Reaction Status Date / Time adhesive tape Allergy Intermediate SKIN Verified 04/16/25 16:17 BLISTERED latex Allergy Intermediate SKIN Verified 04/16/25 16:17 BLISTERED furosemide [From Lasix] Allergy Unknown SEE COMMENT Verified 04/16/25 16:17 duloxetine AdvReac Intermediate Vomiting Verified 04/16/25 16:17 Home Medications Medication Instructions Recorded Confirmed Type Saccharomyces boulardii 250 mg 500 mg PO BID 04/16/25 04/16/25 History capsule (Florastor) acetaminophen 325 mg tablet 650 mg PO Q4H PRN Pain (Scale 04/16/25 04/16/25 History (Tylenol) Score 1-3) acetaminophen 500 mg tablet 500 mg PO Q4H PRN FEVER >100.5 04/16/25 04/16/25 History (Tylenol Extra Strength) albuterol sulfate 2.5 mg/3 mL 2.5 mg inhalation Q6H PRN Wheezing 04/16/25 04/16/25 History (0.083 %) solution for nebulization apixaban 5 mg tablet (Eliquis) 5 mg PO BID 04/16/25 04/16/25 History aspirin 81 mg tablet,delayed 81 mg PO DAILY 04/16/25 04/16/25 History release bisacodyl 10 mg rectal suppository 10 mg AK DAILY PRN Constipation 04/16/25 04/16/25 History bumetanide 2 mg tablet 2 mg PO DAILYBB 04/16/25 04/16/25 History cholecalciferol (vitamin D3) 50 50 mcg PO DAILY 04/16/25 04/16/25 History mcg (2,000 unit) capsule (Vitamin D3) dextromethorphan-guaifenesin 30 1 tab PO Q12H 04/16/25 04/16/25 History mg-600 mg tablet extended snopzez68 hr (Mucinex DM) diclofenac sodium 1 % topical gel 2 g topical TID 04/16/25 04/16/25 History docusate sodium 100 mg capsule 100 mg PO BID PRN Constipation 04/16/25 04/16/25 History empagliflozin 10 mg tablet 10 mg PO DAILY 04/16/25 04/16/25 History (Jardiance) fluticasone fur. 200 mcg-umeclid 1 inh inhalation DAILY 04/16/25 04/16/25 History 62.5 mcg-vilant 25 mcg inhalat.powder (Trelegy Ellipta) folic acid 1 mg tablet 1 mg PO DAILY 04/16/25 04/16/25 History gabapentin 300 mg capsule 300 mg PO BID 04/16/25 04/16/25 History insulin aspart U-100 100 unit/mL 1 sliding scale dose subcut ACHS 04/16/25 04/16/25 History subcutaneous solution (Novolog PRN BSG CONTROL U-100 Insulin aspart) ipratropium 0.5 mg-albuterol 3 mg 3 ml inhalation QID 04/16/25 04/16/25 History (2.5 mg base)/3 mL nebulization soln losartan 25 mg tablet 25 mg PO DAILY 04/16/25 04/16/25 History magnesium oxide 400 mg PO BID 04/16/25 04/16/25 History melatonin 3 mg tablet 9 mg PO HS 04/16/25 04/16/25 History montelukast 10 mg tablet 10 mg PO PM 04/16/25 04/16/25 History (Singulair) multivitamin 1 tab PO DAILY 04/16/25 04/16/25 History ondansetron HCl 4 mg tablet 4 mg PO Q6H PRN NAUSEA/VOMITING 04/16/25 04/16/25 History pantoprazole 40 mg tablet,delayed 40 mg PO DAILYBB 04/16/25 04/16/25 History release polyethylene glycol 3350 17 17 g PO QDL PRN Constipation 04/16/25 04/16/25 History gram/dose oral powder (Miralax) potassium chloride 20 mEq 20 meq PO DAILY 04/16/25 04/16/25 History tablet,extended release(part/cryst) prednisone 10 mg tablet 10 mg PO DIRECTED 04/16/25 04/16/25 History sennosides 8.6 mg-docusate sodium 1 tab-cap PO QDL PRN Constipation 04/16/25 04/16/25 History 50 mg tablet (Senokot-S) sodium chloride 0.9 % (flush) 5 ml IV Q8H 04/16/25 04/16/25 History (Normal Saline Flush 0.9 % injection syringe) sodium phosphates 19 gram-7 118 ml AK DAILY PRN Constipation 04/16/25 04/16/25 History gram/118 mL enema (Fleet Enema) thiamine HCl (vitamin B1) 100 mg 100 mg PO DAILY 04/16/25 04/16/25 History tablet (Vitamin B-1) tramadol 50 mg tablet 50 mg PO Q12H PRN Pain (Scale 04/16/25 04/16/25 History Score 4-10) triamcinolone acetonide 0.1 % 1 applic topical BID PRN Rash 04/16/25 04/16/25 History topical cream Past Med/Surg History Problem List Chronic hyperglycemia (Acute) Hypoalbuminemia (Acute) Acute and chronic respiratory failure (Acute) Acute exacerbation of CHF (congestive heart failure) (Acute) Elevated troponin I level (Acute) CKD (chronic kidney disease) COPD (chronic obstructive pulmonary disease) Dyslipidemia, goal LDL below 100 HTN (hypertension) Pneumonia (Acute) Atrial fibrillation with rapid ventricular response (Acute) Social History Smoking Status: Former smoker Tobacco Type: Cigarettes Hx Alcohol Use: Yes Alcohol type: wine Hx Substance Use: No 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 WEIGHT/BMI reviewed. GEN: Healthy appearing, well-developed, NAD. PSYCH: Good Judgment. AOx3. Normal memory, mood, and affect. HEENT -Head: NC/AT; -Eyes: PERRL, EOMI. No discharge or redn ess; -Ears: External ears are normal. Normal TMs. -Nose: Normal nares. -Mouth and throat: MMM. Normal gums, muc wayne, palate,. Good dentition. NECK: Supple, with no masses. CV: Irreg rhythm, tachycardic 120's, unable to appreciate murmurs, +peripheral swelling lower legs LUNGS: Diminished, no active coughing, supplem O2 ABD: Soft, NT/ND, NBS, no masses or organomegaly. : N/A SKIN: Warm, well perfused. Puple bruising throughout BLE and BUE MSK: RLE boot EXT: No clubbing, cyanosis, or edema. NEURO: Ambulating with no limitations. Normal muscle strength and tone. No focal deficits. Results & Data Results & Data Vital Signs (Past 12 Hours) Vital Signs Temp Pulse Pulse Resp BP Pulse Ox O2 Del Method 04/16/25 15:55 115 H 19 102/72 04/16/25 15:30 127 H 16 111/73 97 04/16/25 15:15 113 H 18 103/77 04/16/25 15:01 107 H 17 84/66 L 99 04/16/25 14:47 115 H 14 91/69 L 98 Room Air 04/16/25 14:45 103 H 20 91/69 L 04/16/25 14:36 122 H 21 85/65 L 04/16/25 14:27 115 H 19 111/68 98 04/16/25 14:19 112 H 17 95/64 L 98 04/16/25 13:45 93 H 20 101/69 99 04/16/25 13:41 144 H 19 97/64 L 97 04/16/25 13:38 135 H 16 97 Nasal Cannula 04/16/25 13:38 88 L Nasal Cannula 04/16/25 13:31 129 H 04/16/25 12:58 135 H 16 97 Nasal Cannula 04/16/25 12:58 135 H 16 97 Nasal Cannula 04/16/25 12:58 88 L Nasal Cannula 04/16/25 12:58 Nasal Cannula 04/16/25 12:58 37.0 C 135 H 16 150/126 H 97 Nasal Cannula O2 Flow Rate 04/16/25 15:55 04/16/25 15:30 04/16/25 15:15 04/16/25 15:01 04/16/25 14:47 04/16/25 14:45 04/16/25 14:36 04/16/25 14:27 04/16/25 14:19 04/16/25 13:45 04/16/25 13:41 04/16/25 13:38 2 04/16/25 13:38 0 04/16/25 13:31 04/16/25 12:58 2 04/16/25 12:58 2 04/16/25 12:58 0 04/16/25 12:58 2 04/16/25 12:58 2 Laboratory Results Short CBC 04/16/25 Range/Units 13:54 WBC 12.87 H (4.8-10.8) K/ul Hgb 11.7 L (12.0-16.0) g/dl Hct 36.8 L (37.0-47.0) % Plt Count 328 (130-400) K/uL BMP 04/16/25 13:54 Sodium 136 Potassium 4.5 Chloride 94 L Carbon Dioxide 33 H BUN 34 H Creatinine 0.72 Glucose 153 H Calcium 9.0 Liver Function 04/16/25 Range/Units 13:54 Total Bilirubin 0.6 (0.2-1.0) mg/dl AST 24 (13-39) U/L ALT 32 (7-52) U/L Alkaline Phosphatase 77 (34-104) U/L Albumin 3.3 L (3.4-5.0) gm/dl Diagnostic Findings Chest X-Ray 04/16/25 13:02 XR chest 1V portable CLINICAL HISTORY: Chest pain, nonspecific COMPARISON STUDY: None FINDINGS: Thoracic spine neurostimulator is present. There is moderate cardiomegaly without pulmonary vascular congestion. There is bandlike opacity at the left mid to lower lung. No other consolidation or pleural effusion. No pneumothorax. IMPRESSION: Opacity at the left mid and lower lung could represent scarring, atelectasis, or early pneumonia. ACT 112: Negative or not required by law. Electronically signed by: Bj King M.D. 04/16/2025 1:24 PM Code Status & VTE Plan VTE Prophylaxis Plan VTE Prophylaxis will be ordered: Yes
[2025-04-16] MEDS ORDERED: MAGNESIUM HYDROXIDE SUSP 30 ML UDC PO PRN (18:24)
[2025-04-16] MEDS ORDERED: ALUMINUM/MAGNESIUM SUSP 30 ML UDC PO PRN (18:24)
[2025-04-16] MEDS ORDERED: POLYETHYLENE (MIRALAX) 17 GM PACK PO PRN (18:24)
[2025-04-16] MEDS: DIGOXIN 250 MCG in SYRINGE 9 ML IV ONE (18:37)
[2025-04-16] MEDS: predniSONE 20 MG TAB PO ONE (18:39)
--- NOTE | 2025-04-16 18:44 | Communication Note ---
Date of Service: April 16, 2025 Attending Addendum: Case reviewed with the advanced practitioner. I have personally performed a history and physical examination on the patient. I have reviewed the advanced practitioner's documentation on the date of service referenced in note, and I agree with, and take responsibility for the plan of care. please refer to her notes for full details patient seen and examined, records reviewed by myself as well on exam, patient seen resting in bed, comfortable, on 2 L via NC states she feels ok overall no chest pain, dyspnea, palpitations, dizziness on exam reports dry cough, cannot expectorate phlegm no other symptoms VS noted and reviewed oriented x3, not in distress, speaks in sentences with no effort nor accessory muscle use HR 110s ,irregularly irregular rhythm, no murmurs mild wheeze BL non distended, soft, nontender mild lower leg edema but no erythema, warmth; (+) diffuse areas of hematoma BL upper and lower extremities no neuro deficits all labs, imaging noted and reviewed ASSESSMENT AND PLAN> ATRIAL FIBRILLATION IN RVR echo ordered evaluated by Lsw initiated Digoxin IV and Metoprolol in place of her usual Sotalol PO monitor COPD EXACERBATION LEFT LOWER LOBE PNEUMONIA, [facility] ACUTE HYPOXIC RESPIRATORY FAILURE sputum culture respiratory panel nasal MRSA swab Cefepime + Doxy will avoid Albuterol nebs in light of a fib RVR, hypertonic saline, incentive spirometer and flutter valve for now Prednisone 40mg po daily other diagnoses and plan of care as per advanced practitioner's notes I spent a total of 50 minutes coordinating, documenting, and providing care for this patient, excluding time spent in the performance of separately billed services or time spent by another provider/QHP. Aly Anand MD
[2025-04-16 19:48] LABS: Chlamydia pneumoniae PCR Not Detected (NotDetected); Coronavirus 229E PCR Not Detected (NotDetected); Coronavirus CoV-2 (COVID19)PCR Not Detected (NotDetected); Coronavirus HKU1 PCR Not Detected (NotDetected); Coronavirus NL63 PCR Not Detected (NotDetected); Coronavirus OC43PCR Not Detected (NotDetected); Human Metapneumovirus PCR Not Detected (NotDetected); Parainfluenza Virus 1 PCR Not Detected (NotDetected); Parainfluenza Virus 2 PCR Not Detected (NotDetected); Parainfluenza Virus 3 PCR Not Detected (NotDetected); Parainfluenza Virus 4 PCR Not Detected (NotDetected); Respiratory Syncytial VirusPCR Not Detected (NotDetected); Rhinovirus/Enterovirus PCR Not Detected (NotDetected)
[2025-04-16] MEDS: CEFEPIME 2000MG 2,000 MG/20 ML SYR IV SCH (19:50)
[2025-04-16 19:58] LABS: Thyroid Stimulating Hormone 0.894 uIu/ml (0.300-4.500)
[2025-04-16] MEDS: SODIUM CHLOR 7% 4 ML NEB NEB SCH (20:45)
[2025-04-16] MEDS ORDERED: MAGNESIUM OXIDE 400 MG TAB PO SCH (21:00)
[2025-04-16] MEDS: ACETAMINOPHEN 325 MG TAB PO PRN (21:36)
[2025-04-16] MEDS: DICLOFENAC SOD 1% GEL 100 GM TUBE EXT SCH (21:36)
[2025-04-16] MEDS: MELATONIN 3 MG TAB PO PRN (21:37)
[2025-04-16] MEDS: APIXABAN 5 MG TABLET PO SCH (21:37)
[2025-04-16] MEDS: MAGNESIUM OXIDE 400 MG TAB PO SCH (21:37)
[2025-04-16] MEDS: DOCUSATE SODIUM 100 MG CAP PO PRN (21:37)
[2025-04-16] MEDS: GABAPENTIN 300 MG CAP PO SCH (21:37)
[2025-04-16] MEDS ORDERED: DIGOXIN 250 MCG in SYRINGE 9 ML IV ONE (22:30)
[2025-04-17] MEDS: DIGOXIN 250 MCG in SYRINGE 9 ML IV ONE ×2 (00:22→10:09)
[2025-04-17] MEDS: ALBUTEROL 0.083% NEBU SOLN 3 ML VIAL NEB PRN (03:17)
[2025-04-17] MEDS: BUMETANIDE 1 MG TAB PO SCH (06:08)
[2025-04-17] MEDS: DOXYCYCLINE HYCLATE 100 MG CAP PO SCH (06:08)
[2025-04-17] MEDS: METOPROLOL SUCC 25MG EXT REL TAB PO SCH (08:59)
[2025-04-17] MEDS: CHOLECALCIFEROL 25 MCG (1000 UNITS) TAB PO SCH (08:59)
[2025-04-17] MEDS: THIAMINE HCL 100 MG TAB PO SCH (08:59)
[2025-04-17] MEDS: ASPIRIN 81 MG ECTAB PO SCH (08:59)
[2025-04-17] MEDS: FOLIC ACID 1 MG TAB PO SCH (08:59)
[2025-04-17] MEDS: MULTIVITAMIN TAB PO SCH (08:59)
[2025-04-17] MEDS ORDERED: NON-FORMULARY MEDICATION (Fluticasone-Umeclidin-Vilanter [Trelegy Ellipta] 200-62.5-25 mcg INH SCH (09:00)
[2025-04-17] MEDS ORDERED: LOSARTAN POTASSIUM 25 MG TAB PO SCH (09:00)
[2025-04-17] MEDS: FLUTICASONE FUROATE 200MCG 14 PUFFS/INHALER INH SCH (09:00)
[2025-04-17] MEDS: UMECLIDINIUM/VILANTEROL 62.5/25MCG 7 PUFFS/INHALER INH SCH (09:00)
--- NOTE | 2025-04-17 09:17 | XCELERA ---
[id number]
[2025-04-17 09:33] LABS: Hematocrit (blood only) 37.6 % (37.0-47.0); Hemoglobin 11.9 g/dl (12.0-16.0); Mean Corpuscular Hemoglobin 33.7 pg (25.0-34.0); Mean Corpuscular Volume 106.5 fL (80.0-100.0); Platelet Count 338 K/uL (130-400); RDW Standard Deviation 56.2 fL (36.4-46.3); Red Blood Count 3.53 M/uL (4.20-5.40); White Blood Count 9.90 K/ul (4.8-10.8)
[2025-04-17] MEDS: predniSONE 20 MG TAB PO SCH (09:41)
[2025-04-17 09:54] LABS: Anion Gap 7.0 (3-11); Blood Urea Nitrogen 39.0 mg/dl (6-23); Calcium 9.0 mg/dl (8.6-10.3); Carbon Dioxide 33.0 mmol/L (21-32); Chloride 93.0 mmol/L (98-107); Creatinine Clr Calc Pharmacy 46.7 ml/min; Glucose 311.0 mg/dl (70-99(Fasting)); Magnesium 2.1 mg/dl (1.7-2.4); Potassium 4.7 mmol/L (3.5-5.1); Sodium 133.0 mmol/L (136-145)
[2025-04-17] MEDS: INSULIN ASPART PER UNIT CHARGE SC STA (10:09)
[2025-04-17] MEDS: METOPROLOL SUCC 25MG EXT REL TAB PO ONE (10:10)
[2025-04-17] MEDS ORDERED: CARBOHYDRATES FOR HYPOGLYCEMIA PO PRN (13:02)
[2025-04-17] MEDS ORDERED: DEXTROSE 50% 50 ML SYRINGE IV PRN (13:02)
[2025-04-17] MEDS ORDERED: GLUCOSE 10 TAB/TUBE PO PRN (13:02)
[2025-04-17] MEDS ORDERED: GLUCOSE 40% GEL 15 GM TUBE PO PRN (13:02)
[2025-04-17] MEDS ORDERED: GLUCAGON FOR INJ 1 MG VIAL SQ PRN (13:02)
[2025-04-17] MEDS ORDERED: STAT IV Infusion **Titration per Protocol STA (13:07)
[2025-04-17] MEDS ORDERED: 0.2 MICRON FILTER SET 1 EACH IV STA (13:07)
[2025-04-17] MEDS ORDERED: AMIODARONE IV BOLUS & DRIP IV STA (13:07)
--- NOTE | 2025-04-17 13:10 | Hospitalist Progress Note ---
Date of Service April 17, 2025 Assessment & Plan (1) Atrial fibrillation with rapid ventricular response: Plan: 75 year old female with past medical history significant for COPD Stage II former smoker, CAD, HFpEF, Paroxysmal Afib on anticoagulation with Eliquis history of multiple ablations, HTN, CKD III, OA, macrocyctic anemia, PAD, h/o ETOH abuse, and others presenting with palpitations, cough. Transferred here from [facility] with tachycardia, heart rate 160's, palpitations, found to be in afib RVR and has been without rate control for over a week. Also with palpitations and nonproductive cough, feels like she can't get anything up. Patient was admitted to [facility] on 04/05/25 for weakness and fall s/p laminectomy 7 weeks prior to the fall. Imaging of right ankle showed nondisplaced right tib fib fracture. She was splinted with no surgical intervention. Hospitalization was complicated by a possible pneumonia and uti; discharged to [facility] on 04/10/25 for rehab. Patient was on sotalol BID dosing for Afib rate control, but this did not transfer when transitioning between facilities. Anticoagulation with Eliquis was given at [facility]. Afib RVR Admitted to PCU Tele EKG showing atrial fibrillation with rapid ventricular response, rate 144 bpm, QTc 473. ECHO w/ EF of 50-55%, no RWMA. TSH wn Cardiology on board, appreciate recs holding cardizem and arb 2/2 hypotension currently on amiodarone, c/w metoprolol, eliquis c/w tele Acute Hypoxic Respiratory Failure 2/2 LLL pneumonia likely HAP: given recent hospitalization/rehab. Leukocytosis noted on lab workup at presentation. Opacity to left mid and lower lung found on Chest Xray. Hypoxia noted, with 2 LPM requirement. Cefepime given in the ED-> will continue Cefepime for pseudomonas coverage; c/w doxy Biofire negative. wbc improving, pt afebrile, feels better w/ sob. 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 Prednisone 40mg po daily x 5 days. incentive spirometer and flutter valve for pulmonary toileting c/w duonebs, home trelegy. HFpEF BNP 930 Continue home diuretic Defer to Cardiology for additional recs on diuretics Hyperglycemia: SSI, will get A1c DVT Ppx: on Eliquis Code status: Full PCP: Dr. Kevin Salazar Dispo:pt/ot (2) Pneumonia: (3) COPD (chronic obstructive pulmonary disease): (4) Acute and chronic respiratory failure: Admission and Anticipated Discharge Date Admission Date: April 16, 2025 Subjective Patient was seen and examined at bedside. Patient was lying in bed, on 1 L oxygen via nasal cannula. Patient reports cough with yellow sputum, denies fever/chest pain/sore throat. Patient reports some shortness of breath, gradually improving. Physical Exam Physical Exam: GEN: Healthy appearing, well-developed, NAD. PSYCH: Good Judgment. AOx3. Normal memory, mood, and affect. HEENT -Head: NC/AT; -Eyes: PERRL, EOMI. No discharge or redn ess; -Ears: External ears are normal. Normal TMs. -Nose: Normal nares. -Mouth and throat: MMM. Normal gums, muc wayne, palate,. Good dentition. NECK: Supple, with no masses. CV: Irreg rhythm, tachycardic 120's, unable to appreciate murmurs, +peripheral swelling lower legs -trace LUNGS: Diminished, bb crackles, no active coughing, supplem O2 - 1L ABD: Soft, NT/ND, NBS, no masses or organomegaly. : N/A SKIN: Warm, well perfused. Puple bruising throughout BLE and BUE MSK: RLE boot EXT: No clubbing, cyanosis, or edema. NEURO: Ambulating with no limitations. Normal muscle strength and tone. No focal deficits. Results & Data Results & Data Vital Signs (Past 12 Hours) Vital Signs Temp Pulse Pulse Pulse Resp BP Pulse Ox 04/17/25 10:27 36.5 C 126 H 18 105/72 94 04/17/25 10:09 123 H 04/17/25 08:00 04/17/25 07:11 116 H 18 96 04/17/25 03:24 36.2 C L 112 H 16 130/86 99 04/17/25 03:17 79 18 96 O2 Del Method O2 Flow Rate 04/17/25 10:27 Nasal Cannula 2 04/17/25 10:09 04/17/25 08:00 Nasal Cannula 2 04/17/25 07:11 Nasal Cannula 1 04/17/25 03:24 Nebulizer 04/17/25 03:17 Nasal Cannula 2
[2025-04-17] MEDS: AMIODARONE / D5W 150 MG/100 ML BAG IV STA (13:51)
[2025-04-17] MEDS: INSULIN ASPART PER UNIT CHARGE SC SCH (13:58)
[2025-04-17] MEDS: AMIODARONE / D5W 360 MG/200 ML BAG IV ONE (14:02)
[2025-04-17] MEDS: CEFEPIME 2000MG 2,000 MG/20 ML SYR IV SCH (15:32)
--- NOTE | 2025-04-17 18:20 | Cardiology Progress Note ---
Date of Service April 17, 2025 Assessment & Plan (1) Atrial fibrillation with rapid ventricular response: (2) Pneumonia: (3) HTN (hypertension): (4) Dyslipidemia, goal LDL below 100: (5) COPD (chronic obstructive pulmonary disease): (6) CKD (chronic kidney disease): Plan 75-year-old female admitted to [facility] on April 16, 2025 from [facility] with recurrent atrial fibrillation with a rapid ventricular response. [id number] Score 5 points with patient chronically prescribed Eliquis anticoagulation (? interrupted when hospitalized at [facility]' post fall circa 2 weeks ago). Options of management discussed. We specifically discussed rate versus rhythm control strategies, resumption of antiarrhythmic therapy with sotalol, alternative antiarrhythmic therapy including the risks and benefits of amiodarone, risks and benefits of continuing versus discontinuing anticoagulation, etc. Patient currently asymptomatic. Atrial fibrillation with rapid ventricular response Pneumonia HTN Dyslipidemia COPD CKD ECHO reviewed; patient still with RVR - will attempt IV amiodarone for anti- arrhythmic management-> dw patient patient received Dig metoprolol as BP allows increase fluid intake abx as per primary team correct and f/u electrolytes keep K between 4 and 4.5 and Mg 2 and 2.5 when on Digoxin f/u renal function continue anticoagulation adjust rate control meds keeping HR between 60 to 100 BPM and systolic BP betwe en 100-140 mmHg avoid hypovolemia keep patient euvolemic salt restriction Admission and Anticipated Discharge Date Admission Date: April 16, 2025 Subjective Patient on exam is lying in bed in NAD; no c/o cp, sob, palpitations, dizziness, LOC patient still with AFib with RVR although better - remains asymptomatic Review of Systems Review of Systems: Complete Review of Systems is as stated above, negative, or noncontributory. Physical Exam Physical Exam: General: A&Ox3. NAD. HENT: Normocephalic. Atraumatic. Eyes: Conjunctiva pink, sclera pale Neck: No JVD. Carotid bruits. Heart: Irregularly irregular. Soft systolic murmur. No diastolic murmur. Lungs: no rales, no wheezing Abdomen: +BS. Soft. Nontender. No masses or organomegaly. Extremities: Marked ecchymosis noted on all extremities. no edema. Limited neurological examination is without focal deficits. Results & Data Vital Signs (Past 12 Hours) Vital Signs Temp Pulse Pulse Resp BP Pulse Ox O2 Del Method 04/17/25 17:51 100 H 20 91 Nasal Cannula 04/17/25 14:41 36.4 C L 93 H 20 120/77 93 Nasal Cannula 04/17/25 13:39 99/66 L 04/17/25 10:27 36.5 C 126 H 18 105/72 94 Nasal Cannula 04/17/25 10:09 123 H 04/17/25 08:00 Nasal Cannula 04/17/25 07:11 116 H 18 96 Nasal Cannula O2 Flow Rate 04/17/25 17:51 2 04/17/25 14:41 1 04/17/25 13:39 04/17/25 10:27 2 04/17/25 10:09 04/17/25 08:00 2 04/17/25 07:11 1 Laboratory Results Laboratory Results - last 48 hr 04/16/25 04/16/25 04/16/25 13:54 18:37 Unknown WBC 12.87 H RBC 3.48 L Hgb 11.7 L Hct 36.8 L MCV 105.7 H MCH 33.6 MCHC 31.8 L RDW Std Deviation 56.9 H RDW Coeff of Nora 14.8 H Plt Count 328 MPV 10.9 Immature Gran % (Auto) 6.1 Neut % (Auto) 86.4 Lymph % (Auto) 3.9 Valencia % (Auto) 2.9 Eos % (Auto) 0.2 Baso % (Auto) 0.5 Neut # (Auto) 11.13 H Lymph # (Auto) 0.50 L Valencia # (Auto) 0.37 Eos # (Auto) 0.02 Baso # (Auto) 0.06 Immature Gran # (Auto) 0.79 H Absolute Nucleated RBC 0.11 Nucleated RBC % (auto) 0.9 Hypersegmented Neuts 1+ Toxic Vacuolation 1+ Polychromasia 1+ Basophilic Stippling 1+ PT 11.3 INR 1.0 APTT 25 PTT Ratio 0.9 Sodium 136 Potassium 4.5 Chloride 94 L Carbon Dioxide 33 H Anion Gap 9 BUN 34 H Creatinine 0.72 Est Cr Clr Drug Dosing 61.3 eGFR 88.23 BUN/Creatinine Ratio 47.2 H Glucose 153 H POC Glucose Calcium 9.0 Phosphorus 3.4 Magnesium 2.1 Total Bilirubin 0.6 AST 24 ALT 32 Alkaline Phosphatase 77 Troponin I High Sens 64.0 H* 52.3 H* D B-Natriuretic Peptide 930 H Total Protein 6.2 Albumin 3.3 L Globulin 2.9 Albumin/Globulin Ratio 1.1 Lipase 42 TSH 0.894 Nasal Screen MRSA (PCR) Negative Adenovirus (PCR) Not Detected B. pertussis DNA (PCR) Not Detected B.parapertussis DNA PCR Not Detected C. pneumoniae DNA (PCR) Not Detected Coronavirus OC43 (PCR) Not Detected Coronavirus HKU1 (PCR) Not Detected Coronavirus 229E (PCR) Not Detected SARS-CoV-2 (PCR) Not Detected Coronavirus NL63 (PCR) Not Detected Human Metapneumovir PCR Not Detected Influenza Type A (PCR) Not Detected Influenza Type B (PCR) Not Detected M. pneumoniae (PCR) Not Detected Parainfluenza 1 (PCR) Not Detected Parainfluenza 2 (PCR) Not Detected Parainfluenza 3 (PCR) Not Detected Parainfluenza 4 (PCR) Not Detected RSV (PCR) Not Detected Entero/Rhino (PCR) Not Detected 04/17/25 04/17/25 04/17/25 06:32 08:59 11:03 WBC 9.90 RBC 3.53 L Hgb 11.9 L Hct 37.6 MCV 106.5 H MCH 33.7 MCHC 31.6 L RDW Std Deviation 56.2 H RDW Coeff of Nora 14.8 H Plt Count 338 MPV 10.8 Immature Gran % (Auto) Neut % (Auto) Lymph % (Auto) Valencia % (Auto) Eos % (Auto) Baso % (Auto) Neut # (Auto) Lymph # (Auto) Valencia # (Auto) Eos # (Auto) Baso # (Auto) Immature Gran # (Auto) Absolute Nucleated RBC 0.09 Nucleated RBC % (auto) 0.9 Hypersegmented Neuts Toxic Vacuolation Polychromasia Basophilic Stippling PT INR APTT PTT Ratio Sodium 133 L Potassium 4.7 Chloride 93 L Carbon Dioxide 33 H Anion Gap 7 BUN 39 H Creatinine 0.93 Est Cr Clr Drug Dosing 46.7 eGFR 64.90 BUN/Creatinine Ratio 41.9 H Glucose 311 H* POC Glucose 212 H 290 H Calcium 9.0 Phosphorus 3.8 Magnesium 2.1 Total Bilirubin AST ALT Alkaline Phosphatase Troponin I High Sens B-Natriuretic Peptide Total Protein Albumin Globulin Albumin/Globulin Ratio Lipase TSH Nasal Screen MRSA (PCR) Adenovirus (PCR) B. pertussis DNA (PCR) B.parapertussis DNA PCR C. pneumoniae DNA (PCR) Coronavirus OC43 (PCR) Coronavirus HKU1 (PCR) Coronavirus 229E (PCR) SARS-CoV-2 (PCR) Coronavirus NL63 (PCR) Human Metapneumovir PCR Influenza Type A (PCR) Influenza Type B (PCR) M. pneumoniae (PCR) Parainfluenza 1 (PCR) Parainfluenza 2 (PCR) Parainfluenza 3 (PCR) Parainfluenza 4 (PCR) RSV (PCR) Entero/Rhino (PCR) 04/17/25 16:27 WBC RBC Hgb Hct MCV MCH MCHC RDW Std Deviation RDW Coeff of Nora Plt Count MPV Immature Gran % (Auto) Neut % (Auto) Lymph % (Auto) Valencia % (Auto) Eos % (Auto) Baso % (Auto) Neut # (Auto) Lymph # (Auto) Valencia # (Auto) Eos # (Auto) Baso # (Auto) Immature Gran # (Auto) Absolute Nucleated RBC Nucleated RBC % (auto) Hypersegmented Neuts Toxic Vacuolation Polychromasia Basophilic Stippling PT INR APTT PTT Ratio Sodium Potassium Chloride Carbon Dioxide Anion Gap BUN Creatinine Est Cr Clr Drug Dosing eGFR BUN/Creatinine Ratio Glucose POC Glucose 98 Calcium Phosphorus Magnesium Total Bilirubin AST ALT Alkaline Phosphatase Troponin I High Sens B-Natriuretic Peptide Total Protein Albumin Globulin Albumin/Globulin Ratio Lipase TSH Nasal Screen MRSA (PCR) Adenovirus (PCR) B. pertussis DNA (PCR) B.parapertussis DNA PCR C. pneumoniae DNA (PCR) Coronavirus OC43 (PCR) Coronavirus HKU1 (PCR) Coronavirus 229E (PCR) SARS-CoV-2 (PCR) Coronavirus NL63 (PCR) Human Metapneumovir PCR Influenza Type A (PCR) Influenza Type B (PCR) M. pneumoniae (PCR) Parainfluenza 1 (PCR) Parainfluenza 2 (PCR) Parainfluenza 3 (PCR) Parainfluenza 4 (PCR) RSV (PCR) Entero/Rhino (PCR) Diagnostic Findings Laboratory Results WBC 9.90 K/ul (4.8-10.8) 04/17/25 08:59 RBC 3.53 M/uL (4.20-5.40) L 04/17/25 08:59 Hgb 11.9 g/dl (12.0-16.0) L 04/17/25 08:59 Hct 37.6 % (37.0-47.0) 04/17/25 08:59 MCV 106.5 fL (80.0-100.0) H 04/17/25 08:59 MCH 33.7 pg (25.0-34.0) 04/17/25 08:59 MCHC 31.6 g/dL (32.0-36.0) L 04/17/25 08:59 RDW Std Deviation 56.2 fL (36.4-46.3) H 04/17/25 08:59 RDW Coeff of Nora 14.8 % (11.5-14.5) H 04/17/25 08:59 Plt Count 338 K/uL (130-400) 04/17/25 08:59 MPV 10.8 fL (9.4-12.4) 04/17/25 08:59 Immature Gran % (Auto) 6.1 % 04/16/25 13:54 Neut % (Auto) 86.4 % 04/16/25 13:54 Lymph % (Auto) 3.9 % 04/16/25 13:54 Valencia % (Auto) 2.9 % 04/16/25 13:54 Eos % (Auto) 0.2 % 04/16/25 13:54 Baso % (Auto) 0.5 % 04/16/25 13:54 Neut # (Auto) 11.13 K/uL (1.40-6.50) H 04/16/25 13:54 Lymph # (Auto) 0.50 K/uL (1.20-3.40) L 04/16/25 13:54 Valencia # (Auto) 0.37 K/uL (0.11-0.59) 04/16/25 13:54 Eos # (Auto) 0.02 K/uL (0.00-0.50) 04/16/25 13:54 Baso # (Auto) 0.06 K/uL (0.00-0.20) 04/16/25 13:54 Immature Gran # (Auto) 0.79 K/uL (0.01-0.20) H 04/16/25 13:54 Absolute Nucleated RBC 0.09 K/uL (0.00-0.12) 04/17/25 08:59 Nucleated RBC % (auto) 0.9 % 04/17/25 08:59 Hypersegmented Neuts 1+ 04/16/25 13:54 Toxic Vacuolation 1+ 04/16/25 13:54 Polychromasia 1+ 04/16/25 13:54 Basophilic Stippling 1+ 04/16/25 13:54 PT 11.3 Seconds (9.0-12.0) 04/16/25 13:54 INR 1.0 (0.9-1.1) 04/16/25 13:54 APTT 25 Seconds (21-31) 04/16/25 13:54 PTT Ratio 0.9 04/16/25 13:54 Sodium 133 mmol/L (136-145) L 04/17/25 08:59 Potassium 4.7 mmol/L (3.5-5.1) 04/17/25 08:59 Chloride 93 mmol/L (98-107) L 04/17/25 08:59 Carbon Dioxide 33 mmol/L (21-32) H 04/17/25 08:59 Anion Gap 7 (3-11) 04/17/25 08:59 BUN 39 mg/dl (6-23) H 04/17/25 08:59 Creatinine 0.93 mg/dl (0.6-1.2) 04/17/25 08:59 Est Cr Clr Drug Dosing 46.7 ml/min 04/17/25 08:59 eGFR 64.90 04/17/25 08:59 BUN/Creatinine Ratio 41.9 (10-20) H 04/17/25 08:59 Glucose 311 mg/dl (70-99(Fasting)) H* 04/17/25 08:59 POC Glucose 98 mg/dl (70-99) 04/17/25 16:27 Calcium 9.0 mg/dl (8.6-10.3) 04/17/25 08:59 Phosphorus 3.8 mg/dl (2.5-4.9) 04/17/25 08:59 Magnesium 2.1 mg/dl (1.7-2.4) 04/17/25 08:59 Total Bilirubin 0.6 mg/dl (0.2-1.0) 04/16/25 13:54 AST 24 U/L (13-39) 04/16/25 13:54 ALT 32 U/L (7-52) 04/16/25 13:54 Alkaline Phosphatase 77 U/L (34-104) 04/16/25 13:54 Troponin I High Sens 52.3 pg/ml (0-14) H* D 04/16/25 18:37 B-Natriuretic Peptide 930 pg/ml (0-100) H 04/16/25 13:54 Total Protein 6.2 gm/dl (6.0-8.3) 04/16/25 13:54 Albumin 3.3 gm/dl (3.4-5.0) L 04/16/25 13:54 Globulin 2.9 gm/dl (2.5-4.0) 04/16/25 13:54 Albumin/Globulin Ratio 1.1 (0.9-2) 04/16/25 13:54 Lipase 42 U/L (11-82) 04/16/25 13:54 TSH 0.894 uIu/ml (0.300-4.500) 04/16/25 18:37 Nasal Screen MRSA (PCR) Negative (Negative) 04/16/25 Unknown Adenovirus (PCR) Not Detected (NotDetected) 04/16/25 Unknown B. pertussis DNA (PCR) Not Detected (NotDetected) 04/16/25 Unknown B.parapertussis DNA PCR Not Detected (NotDetected) 04/16/25 Unknown C. pneumoniae DNA (PCR) Not Detected (NotDetected) 04/16/25 Unknown Coronavirus OC43 (PCR) Not Detected (NotDetected) 04/16/25 Unknown Coronavirus HKU1 (PCR) Not Detected (NotDetected) 04/16/25 Unknown Coronavirus 229E (PCR) Not Detected (NotDetected) 04/16/25 Unknown SARS-CoV-2 (PCR) Not Detected (NotDetected) 04/16/25 Unknown Coronavirus NL63 (PCR) Not Detected (NotDetected) 04/16/25 Unknown Human Metapneumovir PCR Not Detected (NotDetected) 04/16/25 Unknown Influenza Type A (PCR) Not Detected (NotDetected) 04/16/25 Unknown Influenza Type B (PCR) Not Detected (NotDetected) 04/16/25 Unknown M. pneumoniae (PCR) Not Detected (NotDetected) 04/16/25 Unknown Parainfluenza 1 (PCR) Not Detected (NotDetected) 04/16/25 Unknown Parainfluenza 2 (PCR) Not Detected (NotDetected) 04/16/25 Unknown Parainfluenza 3 (PCR) Not Detected (NotDetected) 04/16/25 Unknown Parainfluenza 4 (PCR) Not Detected (NotDetected) 04/16/25 Unknown RSV (PCR) Not Detected (NotDetected) 04/16/25 Unknown Entero/Rhino (PCR) Not Detected (NotDetected) 04/16/25 Unknown Impressions Chest X-Ray 04/16/25 13:02 XR chest 1V portable CLINICAL HISTORY: Chest pain, nonspecific COMPARISON STUDY: None FINDINGS: Thoracic spine neurostimulator is present. There is moderate cardiomegaly without pulmonary vascular congestion. There is bandlike opacity at the left mid to lower lung. No other consolidation or pleural effusion. No pneumothorax. IMPRESSION: Opacity at the left mid and lower lung could represent scarring, atelectasis, or early pneumonia. ACT 112: Negative or not required by law. Electronically signed by: Bj King M.D. 04/16/2025 1:24 PM 04/17/25 ECHO Interpretation Summary Left ventricular systolic function is normal. Left Ventricular Ejection Fraction = 50-55%. Left ventricle diastolic dysfunction is indeterminate The left atrium is mildly dilated. There is mild to moderate mitral regurgitation. There is mild tricuspid regurgitation. Right ventricular systolic pressure is normal. Medications Administered Home Medications Medication Instructions Recorded Confirmed Last Taken Saccharomyces boulardii 250 mg 500 mg PO BID 04/16/25 04/16/25 04/16/25 09:00 capsule (Florastor) acetaminophen 325 mg tablet 650 mg PO Q4H PRN Pain (Scale 04/16/25 04/16/25 Unknown (Tylenol) Score 1-3) acetaminophen 500 mg tablet 500 mg PO Q4H PRN FEVER >100.5 04/16/25 04/16/25 Unknown (Tylenol Extra Strength) albuterol sulfate 2.5 mg/3 mL 2.5 mg inhalation Q6H PRN Wheezing 04/16/25 04/16/25 Unknown (0.083 %) solution for nebulization apixaban 5 mg tablet (Eliquis) 5 mg PO BID 04/16/25 04/16/25 04/16/25 09:00 aspirin 81 mg tablet,delayed 81 mg PO DAILY 04/16/25 04/16/25 04/16/25 release bisacodyl 10 mg rectal suppository 10 mg MO DAILY PRN Constipation 04/16/25 04/16/25 Unknown bumetanide 2 mg tablet 2 mg PO DAILYBB 04/16/25 04/16/25 04/16/25 cholecalciferol (vitamin D3) 50 50 mcg PO DAILY 04/16/25 04/16/25 04/16/25 mcg (2,000 unit) capsule (Vitamin D3) dextromethorphan-guaifenesin 30 1 tab PO Q12H 04/16/25 04/16/25 04/16/25 08:00 mg-600 mg tablet extended keixrag00 hr (Mucinex DM) diclofenac sodium 1 % topical gel 2 g topical TID 04/16/25 04/16/25 04/16/25 docusate sodium 100 mg capsule 100 mg PO BID PRN Constipation 04/16/25 04/16/25 Unknown empagliflozin 10 mg tablet 10 mg PO DAILY 04/16/25 04/16/25 04/16/25 (Jardiance) fluticasone fur. 200 mcg-umeclid 1 inh inhalation DAILY 04/16/25 04/16/25 04/16/25 62.5 mcg-vilant 25 mcg inhalat.powder (Trelegy Ellipta) folic acid 1 mg tablet 1 mg PO DAILY 04/16/25 04/16/25 04/16/25 gabapentin 300 mg capsule 300 mg PO BID 04/16/25 04/16/25 04/16/25 09:00 insulin aspart U-100 100 unit/mL 1 sliding scale dose subcut ACHS 04/16/25 04/16/25 Unknown subcutaneous solution (Novolog PRN BSG CONTROL U-100 Insulin aspart) ipratropium 0.5 mg-albuterol 3 mg 3 ml inhalation QID 04/16/25 04/16/25 04/16/25 (2.5 mg base)/3 mL nebulization soln losartan 25 mg tablet 25 mg PO DAILY 04/16/25 04/16/25 04/16/25 magnesium oxide 400 mg PO BID 04/16/25 04/16/25 04/16/25 09:00 melatonin 3 mg tablet 9 mg PO HS 04/16/25 04/16/25 04/15/25 montelukast 10 mg tablet 10 mg PO PM 04/16/25 04/16/25 04/15/25 (Singulair) multivitamin 1 tab PO DAILY 04/16/25 04/16/25 04/16/25 ondansetron HCl 4 mg tablet 4 mg PO Q6H PRN NAUSEA/VOMITING 04/16/25 04/16/25 Unknown pantoprazole 40 mg tablet,delayed 40 mg PO DAILYBB 04/16/25 04/16/25 04/16/25 release polyethylene glycol 3350 17 17 g PO QDL PRN Constipation 04/16/25 04/16/25 Unknown gram/dose oral powder (Miralax) potassium chloride 20 mEq 20 meq PO DAILY 04/16/25 04/16/25 04/16/25 tablet,extended release(part/cryst) prednisone 10 mg tablet 10 mg PO DIRECTED 04/16/25 04/16/25 04/16/25 30 MG sennosides 8.6 mg-docusate sodium 1 tab-cap PO QDL PRN Constipation 04/16/25 04/16/25 Unknown 50 mg tablet (Senokot-S) sodium chloride 0.9 % (flush) 5 ml IV Q8H 04/16/25 04/16/25 Unknown (Normal Saline Flush 0.9 % injection syringe) sodium phosphates 19 gram-7 118 ml MO DAILY PRN Constipation 04/16/25 04/16/25 Unknown gram/118 mL enema (Fleet Enema) thiamine HCl (vitamin B1) 100 mg 100 mg PO DAILY 04/16/25 04/16/25 04/16/25 tablet (Vitamin B-1) tramadol 50 mg tablet 50 mg PO Q12H PRN Pain (Scale 04/16/25 04/16/25 Unknown Score 4-10) triamcinolone acetonide 0.1 % 1 applic topical BID PRN Rash 04/16/25 04/16/25 Unknown topical cream Active Medications Generic Name Dose Route Start Last Admin Trade Name Freq PRN Reason Stop Dose Admin Acetaminophen 650 mg 04/16/25 18:24 04/17/25 09:40 Acetaminophen 325 Mg Tab PO 05/16/25 18:23 650 mg Q4H PRN Administration Pain or Fever Albuterol 2.5 mg 04/16/25 22:06 04/17/25 17:49 Albuterol 0.083% Nebu Soln 3 Ml Vial NEB 05/16/25 22:05 2.5 mg Q4R PRN Administration Shortness Of Breath Or Wheezing Protocol Apixaban 5 mg 04/16/25 21:00 04/17/25 08:59 Apixaban 5 Mg Tablet PO 05/16/25 20:59 5 mg BID DIOGENES Administration Aspirin 81 mg 04/17/25 09:00 04/17/25 08:59 Aspirin 81 Mg Ectab PO 05/17/25 08:59 81 mg DAILY DIOGENES Administration Bumetanide 2 mg 04/17/25 06:30 04/17/25 06:08 Bumetanide 1 Mg Tab PO 05/17/25 06:29 2 mg DAILYBB DIOGENES Administration Diclofenac Sodium 2 gm 04/16/25 21:00 04/17/25 13:06 Diclofenac Sod 1% Gel 100 Gm Tube EXT 05/16/25 20:59 Not Given TID DIOGENES Protocol Docusate Sodium 100 mg 04/16/25 16:13 04/16/25 21:37 Docusate Sodium 100 Mg Cap PO 05/16/25 16:12 100 mg BID PRN Administration Constipation Doxycycline Hyclate 100 mg 04/17/25 07:00 04/17/25 06:08 Doxycycline Hyclate 100 Mg Cap PO 04/22/25 06:59 100 mg BID DIOGENES Administration Fluticasone Furoate 1 puffs 04/17/25 09:00 04/17/25 09:00 Fluticasone Furoate 200mcg 14 Puffs/Inhaler INH 05/17/25 08:59 1 puffs DAILY DIOGENES Administration Folic Acid 1 mg 04/17/25 09:00 04/17/25 08:59 Folic Acid 1 Mg Tab PO 05/17/25 08:59 1 mg DAILY DIOGENES Administration Gabapentin 300 mg 04/16/25 21:00 04/17/25 09:41 Gabapentin 300 Mg Cap PO 05/16/25 20:59 Not Given BID DIOGENES Cefepime HCl 2,000 mg in 20 mls @ 5 mls/min 04/17/25 15:00 04/17/25 15:32 Maxipime 2000mg IV 04/21/25 14:59 5 mls/min Q12H DIOGENES Administration Protocol Amiodarone HCl/Dextrose 360 mg in 200 mls @ 33.333 mls/hr 04/17/25 13:18 04/17/25 14:02 Nexterone / D5w IV 04/17/25 19:17 1 mg/min ONE ONE 33.3 mls/hr Administration 1 MG/MIN Insulin Aspart 0 units 04/17/25 13:15 04/17/25 17:38 Insulin Aspart Per Unit Charge SC 05/17/25 13:14 3 units ACHS DIOGENES Administration Magnesium Oxide 400 mg 04/16/25 21:00 04/17/25 17:39 Magnesium Oxide 400 Mg Tab PO 05/16/25 20:59 400 mg BID@1100,1900 DIOGENES Administration Melatonin 3 mg 04/16/25 18:24 04/16/25 21:37 Melatonin 3 Mg Tab PO 05/16/25 18:23 3 mg HS PRN Administration Sleep Multivitamins 1 tab 04/17/25 09:00 04/17/25 08:59 Multivitamin Tab PO 05/17/25 08:59 1 tab QAM DIOGENES Administration Pantoprazole Sodium 40 mg 04/17/25 06:30 04/17/25 06:08 Pantoprazole 40 Mg Tab PO 05/17/25 06:29 40 mg DAILYBB DIOGENES Administration Prednisone 40 mg 04/17/25 09:00 04/17/25 09:41 Prednisone 20 Mg Tab PO 04/21/25 09:01 40 mg DAILY DIOGENES Administration Sodium Chloride 4 ml 04/16/25 19:00 04/17/25 17:49 Sodium Chlor 7% 4 Ml Neb NEB 05/16/25 18:59 4 ml BIDR DIOGENES Administration Thiamine HCl 100 mg 04/17/25 09:00 04/17/25 08:59 Thiamine Hcl 100 Mg Tab PO 05/17/25 08:59 100 mg DAILY DIOGENES Administration Umeclidinium/Vilanterol 1 puffs 04/17/25 09:00 04/17/25 09:00 Umeclidinium/Vilanterol 62.5/25mcg 7 Puffs/Inhaler INH 05/17/25 08:59 1 puffs DAILY DIOGENES Administration Vitamin D 50 mcg 04/17/25 09:00 04/17/25 08:59 Cholecalciferol 25 Mcg (1000 Units) Tab PO 05/17/25 08:59 50 mcg DAILY DIOGENES Administration PG Care Time/CCT Total # of Minutes Spent Total Time Spent with Patient: Total time spent is greater than 50% in coordination of care (as documented) at patient's floor/unit and/or counseling patient: Coding Level of Care Code 70707 SUB INP/OBS CARE 3/50MIN Diagnoses Atrial fibrillation with rapid ventricular response I48.91 Pneumonia J18.9 HTN (hypertension) I10 Dyslipidemia, goal LDL below 100 E78.5 COPD (chronic obstructive pulmonary disease) J44.9 CKD (chronic kidney disease) N18.9
[2025-04-17] MEDS: AMIODARONE / D5W 360 MG/200 ML BAG IV SCH (20:20)
[2025-04-17] MEDS: METOPROLOL SUCC 50MG EXT REL TAB PO SCH (20:25)
[2025-04-18 06:29] LABS: Hematocrit (blood only) 35.9 % (37.0-47.0); Hemoglobin 11.3 g/dl (12.0-16.0); Mean Corpuscular Hemoglobin 32.9 pg (25.0-34.0); Mean Corpuscular Volume 104.7 fL (80.0-100.0); Platelet Count 327 K/uL (130-400); RDW Standard Deviation 55.0 fL (36.4-46.3); Red Blood Count 3.43 M/uL (4.20-5.40); White Blood Count 12.39 K/ul (4.8-10.8)
[2025-04-18 07:16] LABS: Anion Gap 6.0 (3-11); Blood Urea Nitrogen 52.0 mg/dl (6-23); Calcium 8.7 mg/dl (8.6-10.3); Carbon Dioxide 33.0 mmol/L (21-32); Chloride 94.0 mmol/L (98-107); Creatinine Clr Calc Pharmacy 33.4 ml/min; Glucose 159.0 mg/dl (70-99(Fasting)); Magnesium 2.2 mg/dl (1.7-2.4); Potassium 4.1 mmol/L (3.5-5.1); Sodium 133.0 mmol/L (136-145)
[2025-04-18] MEDS: DIGOXIN 0.125 MG TAB PO SCH (10:30)
--- NOTE | 2025-04-18 11:45 | Cardiology Progress Note ---
Date of Service April 18, 2025 Assessment & Plan (1) Atrial fibrillation with rapid ventricular response: (2) Pneumonia: (3) HTN (hypertension): (4) Dyslipidemia, goal LDL below 100: (5) COPD (chronic obstructive pulmonary disease): (6) CKD (chronic kidney disease): Plan 75-year-old female admitted to [facility] on April 16, 2025 from [facility] with recurrent atrial fibrillation with a rapid ventricular response. [id number] Score 5 points with patient chronically prescribed Eliquis anticoagulation (? interrupted when hospitalized at [facility] post fall circa 2 weeks ago). Options of management discussed. We specifically discussed rate versus rhythm control strategies, resumption of antiarrhythmic therapy with sotalol, alternative antiarrhythmic therapy including the risks and benefits of amiodarone, risks and benefits of continuing versus discontinuing anticoagulation, etc. Patient currently asymptomatic. Atrial fibrillation with rapid ventricular response -> CVR Pneumonia HTN Dyslipidemia COPD CKD Continue IV amiodarone for anti-arrhythmic management-> dw patient Digoxin metoprolol as BP allows increase fluid intake DCd Bumex abx as per primary team correct and f/u electrolytes keep K between 4 and 4.5 and Mg 2 and 2.5 when on Digoxin f/u renal function continue Eliquis adjust rate control meds keeping HR between 60 to 100 BPM and systolic BP between 100-140 mmHg avoid hypovolemia keep patient euvolemic salt restriction DW patient, son and daughter in law via phone at bedside Admission and Anticipated Discharge Date Admission Date: April 16, 2025 Subjective Patient on exam is lying in bed in NAD; no c/o cp, sob, palpitations, dizziness, LOC patient still with AFib although CVR - remains asymptomatic Review of Systems Review of Systems: Complete Review of Systems is as stated above, negative, or noncontributory. Physical Exam Physical Exam: General: A&Ox3. NAD. HENT: Normocephalic. Atraumatic. Eyes: Conjunctiva pink, sclera pale Neck: No JVD. Carotid bruits. Heart: Irregularly irregular. Soft systolic murmur. No diastolic murmur. Lungs: no rales, no wheezing Abdomen: +BS. Soft. Nontender. No masses or organomegaly. Extremities: Marked ecchymosis noted on all extremities. no edema. Limited neurological examination is without focal deficits. Results & Data Vital Signs (Past 12 Hours) Vital Signs Temp Pulse Pulse Pulse Resp BP BP 04/18/25 11:16 36.6 C 96 H 20 121/92 04/18/25 10:30 89 04/18/25 07:11 36.3 C L 90 20 129/74 04/18/25 07:07 94 H 18 04/18/25 04:28 36.4 C L 94 H 19 118/75 04/18/25 00:51 36.4 C L 93 H 18 122/82 Pulse Ox O2 Del Method O2 Flow Rate 04/18/25 11:16 92 Nasal Cannula 1.0 04/18/25 10:30 04/18/25 07:11 100 Nasal Cannula 1 04/18/25 07:07 93 Nasal Cannula 1 04/18/25 04:28 94 Room Air 04/18/25 00:51 95 Nasal Cannula 1 Laboratory Results Laboratory Results - last 48 hr 04/16/25 04/16/25 04/16/25 13:54 18:37 Unknown WBC 12.87 H RBC 3.48 L Hgb 11.7 L Hct 36.8 L MCV 105.7 H MCH 33.6 MCHC 31.8 L RDW Std Deviation 56.9 H RDW Coeff of Nora 14.8 H Plt Count 328 MPV 10.9 Immature Gran % (Auto) 6.1 Neut % (Auto) 86.4 Lymph % (Auto) 3.9 Mayes % (Auto) 2.9 Eos % (Auto) 0.2 Baso % (Auto) 0.5 Neut # (Auto) 11.13 H Lymph # (Auto) 0.50 L Mayes # (Auto) 0.37 Eos # (Auto) 0.02 Baso # (Auto) 0.06 Immature Gran # (Auto) 0.79 H Absolute Nucleated RBC 0.11 Nucleated RBC % (auto) 0.9 Hypersegmented Neuts 1+ Toxic Vacuolation 1+ Polychromasia 1+ Basophilic Stippling 1+ PT 11.3 INR 1.0 APTT 25 PTT Ratio 0.9 Sodium 136 Potassium 4.5 Chloride 94 L Carbon Dioxide 33 H Anion Gap 9 BUN 34 H Creatinine 0.72 Est Cr Clr Drug Dosing 61.3 eGFR 88.23 BUN/Creatinine Ratio 47.2 H Glucose 153 H POC Glucose Calcium 9.0 Phosphorus 3.4 Magnesium 2.1 Total Bilirubin 0.6 AST 24 ALT 32 Alkaline Phosphatase 77 Troponin I High Sens 64.0 H* 52.3 H* D B-Natriuretic Peptide 930 H Total Protein 6.2 Albumin 3.3 L Globulin 2.9 Albumin/Globulin Ratio 1.1 Lipase 42 TSH 0.894 Nasal Screen MRSA (PCR) Negative Adenovirus (PCR) Not Detected B. pertussis DNA (PCR) Not Detected B.parapertussis DNA PCR Not Detected C. pneumoniae DNA (PCR) Not Detected Coronavirus OC43 (PCR) Not Detected Coronavirus HKU1 (PCR) Not Detected Coronavirus 229E (PCR) Not Detected SARS-CoV-2 (PCR) Not Detected Coronavirus NL63 (PCR) Not Detected Human Metapneumovir PCR Not Detected Influenza Type A (PCR) Not Detected Influenza Type B (PCR) Not Detected M. pneumoniae (PCR) Not Detected Parainfluenza 1 (PCR) Not Detected Parainfluenza 2 (PCR) Not Detected Parainfluenza 3 (PCR) Not Detected Parainfluenza 4 (PCR) Not Detected RSV (PCR) Not Detected Entero/Rhino (PCR) Not Detected 04/17/25 04/17/25 04/17/25 06:32 08:59 11:03 WBC 9.90 RBC 3.53 L Hgb 11.9 L Hct 37.6 MCV 106.5 H MCH 33.7 MCHC 31.6 L RDW Std Deviation 56.2 H RDW Coeff of Nora 14.8 H Plt Count 338 MPV 10.8 Immature Gran % (Auto) Neut % (Auto) Lymph % (Auto) Mayes % (Auto) Eos % (Auto) Baso % (Auto) Neut # (Auto) Lymph # (Auto) Mayes # (Auto) Eos # (Auto) Baso # (Auto) Immature Gran # (Auto) Absolute Nucleated RBC 0.09 Nucleated RBC % (auto) 0.9 Hypersegmented Neuts Toxic Vacuolation Polychromasia Basophilic Stippling PT INR APTT PTT Ratio Sodium 133 L Potassium 4.7 Chloride 93 L Carbon Dioxide 33 H Anion Gap 7 BUN 39 H Creatinine 0.93 Est Cr Clr Drug Dosing 46.7 eGFR 64.90 BUN/Creatinine Ratio 41.9 H Glucose 311 H* POC Glucose 212 H 290 H Calcium 9.0 Phosphorus 3.8 Magnesium 2.1 Total Bilirubin AST ALT Alkaline Phosphatase Troponin I High Sens B-Natriuretic Peptide Total Protein Albumin Globulin Albumin/Globulin Ratio Lipase TSH Nasal Screen MRSA (PCR) Adenovirus (PCR) B. pertussis DNA (PCR) B.parapertussis DNA PCR C. pneumoniae DNA (PCR) Coronavirus OC43 (PCR) Coronavirus HKU1 (PCR) Coronavirus 229E (PCR) SARS-CoV-2 (PCR) Coronavirus NL63 (PCR) Human Metapneumovir PCR Influenza Type A (PCR) Influenza Type B (PCR) M. pneumoniae (PCR) Parainfluenza 1 (PCR) Parainfluenza 2 (PCR) Parainfluenza 3 (PCR) Parainfluenza 4 (PCR) RSV (PCR) Entero/Rhino (PCR) 04/17/25 04/17/25 04/18/25 16:27 20:30 06:06 WBC 12.39 H RBC 3.43 L Hgb 11.3 L Hct 35.9 L MCV 104.7 H MCH 32.9 MCHC 31.5 L RDW Std Deviation 55.0 H RDW Coeff of Nora 14.7 H Plt Count 327 MPV 10.4 Immature Gran % (Auto) Neut % (Auto) Lymph % (Auto) Mayes % (Auto) Eos % (Auto) Baso % (Auto) Neut # (Auto) Lymph # (Auto) Mayes # (Auto) Eos # (Auto) Baso # (Auto) Immature Gran # (Auto) Absolute Nucleated RBC 0.06 Nucleated RBC % (auto) 0.5 Hypersegmented Neuts Toxic Vacuolation Polychromasia Basophilic Stippling PT INR APTT PTT Ratio Sodium 133 L Potassium 4.1 Chloride 94 L Carbon Dioxide 33 H Anion Gap 6 BUN 52 H Creatinine 1.30 H D Est Cr Clr Drug Dosing 33.4 eGFR 43.42 BUN/Creatinine Ratio 40.0 H Glucose 159 H POC Glucose 98 256 H Calcium 8.7 Phosphorus 2.8 D Magnesium 2.2 Total Bilirubin AST ALT Alkaline Phosphatase Troponin I High Sens B-Natriuretic Peptide Total Protein Albumin Globulin Albumin/Globulin Ratio Lipase TSH Nasal Screen MRSA (PCR) Adenovirus (PCR) B. pertussis DNA (PCR) B.parapertussis DNA PCR C. pneumoniae DNA (PCR) Coronavirus OC43 (PCR) Coronavirus HKU1 (PCR) Coronavirus 229E (PCR) SARS-CoV-2 (PCR) Coronavirus NL63 (PCR) Human Metapneumovir PCR Influenza Type A (PCR) Influenza Type B (PCR) M. pneumoniae (PCR) Parainfluenza 1 (PCR) Parainfluenza 2 (PCR) Parainfluenza 3 (PCR) Parainfluenza 4 (PCR) RSV (PCR) Entero/Rhino (PCR) 04/18/25 04/18/25 07:25 11:25 WBC RBC Hgb Hct MCV MCH MCHC RDW Std Deviation RDW Coeff of Nora Plt Count MPV Immature Gran % (Auto) Neut % (Auto) Lymph % (Auto) Mayes % (Auto) Eos % (Auto) Baso % (Auto) Neut # (Auto) Lymph # (Auto) Mayes # (Auto) Eos # (Auto) Baso # (Auto) Immature Gran # (Auto) Absolute Nucleated RBC Nucleated RBC % (auto) Hypersegmented Neuts Toxic Vacuolation Polychromasia Basophilic Stippling PT INR APTT PTT Ratio Sodium Potassium Chloride Carbon Dioxide Anion Gap BUN Creatinine Est Cr Clr Drug Dosing eGFR BUN/Creatinine Ratio Glucose POC Glucose 171 H 154 H Calcium Phosphorus Magnesium Total Bilirubin AST ALT Alkaline Phosphatase Troponin I High Sens B-Natriuretic Peptide Total Protein Albumin Globulin Albumin/Globulin Ratio Lipase TSH Nasal Screen MRSA (PCR) Adenovirus (PCR) B. pertussis DNA (PCR) B.parapertussis DNA PCR C. pneumoniae DNA (PCR) Coronavirus OC43 (PCR) Coronavirus HKU1 (PCR) Coronavirus 229E (PCR) SARS-CoV-2 (PCR) Coronavirus NL63 (PCR) Human Metapneumovir PCR Influenza Type A (PCR) Influenza Type B (PCR) M. pneumoniae (PCR) Parainfluenza 1 (PCR) Parainfluenza 2 (PCR) Parainfluenza 3 (PCR) Parainfluenza 4 (PCR) RSV (PCR) Entero/Rhino (PCR) Diagnostic Findings Laboratory Results WBC 12.39 K/ul (4.8-10.8) H 04/18/25 06:06 RBC 3.43 M/uL (4.20-5.40) L 04/18/25 06:06 Hgb 11.3 g/dl (12.0-16.0) L 04/18/25 06:06 Hct 35.9 % (37.0-47.0) L 04/18/25 06:06 MCV 104.7 fL (80.0-100.0) H 04/18/25 06:06 MCH 32.9 pg (25.0-34.0) 04/18/25 06:06 MCHC 31.5 g/dL (32.0-36.0) L 04/18/25 06:06 RDW Std Deviation 55.0 fL (36.4-46.3) H 04/18/25 06:06 RDW Coeff of Nora 14.7 % (11.5-14.5) H 04/18/25 06:06 Plt Count 327 K/uL (130-400) 04/18/25 06:06 MPV 10.4 fL (9.4-12.4) 04/18/25 06:06 Immature Gran % (Auto) 6.1 % 04/16/25 13:54 Neut % (Auto) 86.4 % 04/16/25 13:54 Lymph % (Auto) 3.9 % 04/16/25 13:54 Mayes % (Auto) 2.9 % 04/16/25 13:54 Eos % (Auto) 0.2 % 04/16/25 13:54 Baso % (Auto) 0.5 % 04/16/25 13:54 Neut # (Auto) 11.13 K/uL (1.40-6.50) H 04/16/25 13:54 Lymph # (Auto) 0.50 K/uL (1.20-3.40) L 04/16/25 13:54 Mayes # (Auto) 0.37 K/uL (0.11-0.59) 04/16/25 13:54 Eos # (Auto) 0.02 K/uL (0.00-0.50) 04/16/25 13:54 Baso # (Auto) 0.06 K/uL (0.00-0.20) 04/16/25 13:54 Immature Gran # (Auto) 0.79 K/uL (0.01-0.20) H 04/16/25 13:54 Absolute Nucleated RBC 0.06 K/uL (0.00-0.12) 04/18/25 06:06 Nucleated RBC % (auto) 0.5 % 04/18/25 06:06 Hypersegmented Neuts 1+ 04/16/25 13:54 Toxic Vacuolation 1+ 04/16/25 13:54 Polychromasia 1+ 04/16/25 13:54 Basophilic Stippling 1+ 04/16/25 13:54 PT 11.3 Seconds (9.0-12.0) 04/16/25 13:54 INR 1.0 (0.9-1.1) 04/16/25 13:54 APTT 25 Seconds (21-31) 04/16/25 13:54 PTT Ratio 0.9 04/16/25 13:54 Sodium 133 mmol/L (136-145) L 04/18/25 06:06 Potassium 4.1 mmol/L (3.5-5.1) 04/18/25 06:06 Chloride 94 mmol/L (98-107) L 04/18/25 06:06 Carbon Dioxide 33 mmol/L (21-32) H 04/18/25 06:06 Anion Gap 6 (3-11) 04/18/25 06:06 BUN 52 mg/dl (6-23) H 04/18/25 06:06 Creatinine 1.30 mg/dl (0.6-1.2) H D 04/18/25 06:06 Est Cr Clr Drug Dosing 33.4 ml/min 04/18/25 06:06 eGFR 43.42 04/18/25 06:06 BUN/Creatinine Ratio 40.0 (10-20) H 04/18/25 06:06 Glucose 159 mg/dl (70-99(Fasting)) H 04/18/25 06:06 POC Glucose 154 mg/dl (70-99) H 04/18/25 11:25 Calcium 8.7 mg/dl (8.6-10.3) 04/18/25 06:06 Phosphorus 2.8 mg/dl (2.5-4.9) D 04/18/25 06:06 Magnesium 2.2 mg/dl (1.7-2.4) 04/18/25 06:06 Total Bilirubin 0.6 mg/dl (0.2-1.0) 04/16/25 13:54 AST 24 U/L (13-39) 04/16/25 13:54 ALT 32 U/L (7-52) 04/16/25 13:54 Alkaline Phosphatase 77 U/L (34-104) 04/16/25 13:54 Troponin I High Sens 52.3 pg/ml (0-14) H* D 04/16/25 18:37 B-Natriuretic Peptide 930 pg/ml (0-100) H 04/16/25 13:54 Total Protein 6.2 gm/dl (6.0-8.3) 04/16/25 13:54 Albumin 3.3 gm/dl (3.4-5.0) L 04/16/25 13:54 Globulin 2.9 gm/dl (2.5-4.0) 04/16/25 13:54 Albumin/Globulin Ratio 1.1 (0.9-2) 04/16/25 13:54 Lipase 42 U/L (11-82) 04/16/25 13:54 TSH 0.894 uIu/ml (0.300-4.500) 04/16/25 18:37 Nasal Screen MRSA (PCR) Negative (Negative) 04/16/25 Unknown Adenovirus (PCR) Not Detected (NotDetected) 04/16/25 Unknown B. pertussis DNA (PCR) Not Detected (NotDetected) 04/16/25 Unknown B.parapertussis DNA PCR Not Detected (NotDetected) 04/16/25 Unknown C. pneumoniae DNA (PCR) Not Detected (NotDetected) 04/16/25 Unknown Coronavirus OC43 (PCR) Not Detected (NotDetected) 04/16/25 Unknown Coronavirus HKU1 (PCR) Not Detected (NotDetected) 04/16/25 Unknown Coronavirus 229E (PCR) Not Detected (NotDetected) 04/16/25 Unknown SARS-CoV-2 (PCR) Not Detected (NotDetected) 04/16/25 Unknown Coronavirus NL63 (PCR) Not Detected (NotDetected) 04/16/25 Unknown Human Metapneumovir PCR Not Detected (NotDetected) 04/16/25 Unknown Influenza Type A (PCR) Not Detected (NotDetected) 04/16/25 Unknown Influenza Type B (PCR) Not Detected (NotDetected) 04/16/25 Unknown M. pneumoniae (PCR) Not Detected (NotDetected) 04/16/25 Unknown Parainfluenza 1 (PCR) Not Detected (NotDetected) 04/16/25 Unknown Parainfluenza 2 (PCR) Not Detected (NotDetected) 04/16/25 Unknown Parainfluenza 3 (PCR) Not Detected (NotDetected) 04/16/25 Unknown Parainfluenza 4 (PCR) Not Detected (NotDetected) 04/16/25 Unknown RSV (PCR) Not Detected (NotDetected) 04/16/25 Unknown Entero/Rhino (PCR) Not Detected (NotDetected) 04/16/25 Unknown Impressions Chest X-Ray 04/16/25 13:02 XR chest 1V portable CLINICAL HISTORY: Chest pain, nonspecific COMPARISON STUDY: None FINDINGS: Thoracic spine neurostimulator is present. There is moderate cardiomegaly without pulmonary vascular congestion. There is bandlike opacity at the left mid to lower lung. No other consolidation or pleural effusion. No pneumothorax. IMPRESSION: Opacity at the left mid and lower lung could represent scarring, atelectasis, or early pneumonia. ACT 112: Negative or not required by law. Electronically signed by: Bj King M.D. 04/16/2025 1:24 PM Medications Administered Home Medications Medication Instructions Recorded Confirmed Last Taken Saccharomyces boulardii 250 mg 500 mg PO BID 04/16/25 04/16/25 04/16/25 09:00 capsule (Florastor) acetaminophen 325 mg tablet 650 mg PO Q4H PRN Pain (Scale 04/16/25 04/16/25 Unknown (Tylenol) Score 1-3) acetaminophen 500 mg tablet 500 mg PO Q4H PRN FEVER >100.5 04/16/25 04/16/25 Unknown (Tylenol Extra Strength) albuterol sulfate 2.5 mg/3 mL 2.5 mg inhalation Q6H PRN Wheezing 04/16/25 04/16/25 Unknown (0.083 %) solution for nebulization apixaban 5 mg tablet (Eliquis) 5 mg PO BID 04/16/25 04/16/25 04/16/25 09:00 aspirin 81 mg tablet,delayed 81 mg PO DAILY 04/16/25 04/16/25 04/16/25 release bisacodyl 10 mg rectal suppository 10 mg WA DAILY PRN Constipation 04/16/25 04/16/25 Unknown bumetanide 2 mg tablet 2 mg PO DAILYBB 04/16/25 04/16/25 04/16/25 cholecalciferol (vitamin D3) 50 50 mcg PO DAILY 04/16/25 04/16/25 04/16/25 mcg (2,000 unit) capsule (Vitamin D3) dextromethorphan-guaifenesin 30 1 tab PO Q12H 04/16/25 04/16/25 04/16/25 08:00 mg-600 mg tablet extended [id number] hr (Mucinex DM) diclofenac sodium 1 % topical gel 2 g topical TID 04/16/25 04/16/25 04/16/25 docusate sodium 100 mg capsule 100 mg PO BID PRN Constipation 04/16/25 04/16/25 Unknown empagliflozin 10 mg tablet 10 mg PO DAILY 04/16/25 04/16/25 04/16/25 (Jardiance) fluticasone fur. 200 mcg-umeclid 1 inh inhalation DAILY 04/16/25 04/16/25 04/16/25 62.5 mcg-vilant 25 mcg inhalat.powder (Trelegy Ellipta) folic acid 1 mg tablet 1 mg PO DAILY 04/16/25 04/16/25 04/16/25 gabapentin 300 mg capsule 300 mg PO BID 04/16/25 04/16/25 04/16/25 09:00 insulin aspart U-100 100 unit/mL 1 sliding scale dose subcut ACHS 04/16/25 04/16/25 Unknown subcutaneous solution (Novolog PRN BSG CONTROL U-100 Insulin aspart) ipratropium 0.5 mg-albuterol 3 mg 3 ml inhalation QID 04/16/25 04/16/25 04/16/25 (2.5 mg base)/3 mL nebulization soln losartan 25 mg tablet 25 mg PO DAILY 04/16/25 04/16/25 04/16/25 magnesium oxide 400 mg PO BID 04/16/25 04/16/25 04/16/25 09:00 melatonin 3 mg tablet 9 mg PO HS 04/16/25 04/16/25 04/15/25 montelukast 10 mg tablet 10 mg PO PM 04/16/25 04/16/25 04/15/25 (Singulair) multivitamin 1 tab PO DAILY 04/16/25 04/16/2504/16/25 ondansetron HCl 4 mg tablet 4 mg PO Q6H PRN NAUSEA/VOMITING 04/16/25 04/16/25 Unknown pantoprazole 40 mg tablet,delayed 40 mg PO DAILYBB 04/16/25 04/16/25 04/16/25 release polyethylene glycol 3350 17 17 g PO QDL PRN Constipation 04/16/25 04/16/25 Unknown gram/dose oral powder (Miralax) potassium chloride 20 mEq 20 meq PO DAILY 04/16/25 04/16/25 04/16/25 tablet,extended release(part/cryst) prednisone 10 mg tablet 10 mg PO DIRECTED 04/16/25 04/16/25 04/16/25 30 MG sennosides 8.6 mg-docusate sodium 1 tab-cap PO QDL PRN Constipation 04/16/25 04/16/25 Unknown 50 mg tablet (Senokot-S) sodium chloride 0.9 % (flush) 5 ml IV Q8H 04/16/25 04/16/25 Unknown (Normal Saline Flush 0.9 % injection syringe) sodium phosphates 19 gram-7 118 ml WA DAILY PRN Constipation 04/16/25 04/16/25 Unknown gram/118 mL enema (Fleet Enema) thiamine HCl (vitamin B1) 100 mg 100 mg PO DAILY 04/16/25 04/16/25 04/16/25 tablet (Vitamin B-1) tramadol 50 mg tablet 50 mg PO Q12H PRN Pain (Scale 04/16/25 04/16/25 Unknown Score 4-10) triamcinolone acetonide 0.1 % 1 applic topical BID PRN Rash 04/16/25 04/16/25 Unknown topical cream Active Medications Generic Name Dose Route Start Last Admin Trade Name Freq PRN Reason Stop Dose Admin Acetaminophen 650 mg 04/16/25 18:24 04/17/25 19:08 Acetaminophen 325 Mg Tab PO 05/16/25 18:23 650 mg Q4H PRN Administration Pain or Fever Albuterol 2.5 mg 04/16/25 22:06 04/17/25 17:49 Albuterol 0.083% Nebu Soln 3 Ml Vial NEB 05/16/25 22:05 2.5 mg Q4R PRN Administration Shortness Of Breath Or Wheezing Protocol Apixaban 5 mg 04/16/25 21:00 04/18/25 08:51 Apixaban 5 Mg Tablet PO 05/16/25 20:59 5 mg BID DIOGENES Administration Aspirin 81 mg 04/17/25 09:00 04/18/25 08:51 Aspirin 81 Mg Ectab PO 05/17/25 08:59 81 mg DAILY DIOGENES Administration Diclofenac Sodium 2 gm 04/16/25 21:00 04/18/25 08:52 Diclofenac Sod 1% Gel 100 Gm Tube EXT 05/16/25 20:59 2 gm TID DIOGENES Administration Protocol Digoxin 0.125 mg 04/18/25 09:15 04/18/25 10:30 Digoxin 0.125 Mg Tab PO 05/18/25 09:14 0.125 mg DAILY@1600 DIOGENES Administration Docusate Sodium 100 mg 04/16/25 16:13 04/16/25 21:37 Docusate Sodium 100 Mg Cap PO 05/16/25 16:12 100 mg BID PRN Administration Constipation Doxycycline Hyclate 100 mg 04/17/25 07:00 04/18/25 08:52 Doxycycline Hyclate 100 Mg Cap PO 04/22/25 06:59 100 mg BID DIOGENES Administration Fluticasone Furoate 1 puffs 04/17/25 09:00 04/18/25 08:52 Fluticasone Furoate 200mcg 14 Puffs/Inhaler INH 05/17/25 08:59 1 puffs DAILY DIOGENES Administration Folic Acid 1 mg 04/17/25 09:00 04/18/25 08:52 Folic Acid 1 Mg Tab PO 05/17/25 08:59 1 mg DAILY DIOGENES Administration Gabapentin 300 mg 04/16/25 21:00 04/18/25 08:52 Gabapentin 300 Mg Cap PO 05/16/25 20:59 300 mg BID DIOGENES Administration Cefepime HCl 2,000 mg in 20 mls @ 5 mls/min 04/17/25 15:00 04/18/25 04:13 Maxipime 2000mg IV 04/21/25 14:59 5 mls/min Q12H DIOGENES Administration Protocol Amiodarone HCl/Dextrose 360 mg in 200 mls @ 16.667 mls/hr 04/17/25 19:15 04/18/25 08:51 Nexterone / D5w IV 05/17/25 19:14 0.5 mg/min .Q12H DIOGENES 16.7 mls/hr Administration 0.5 MG/MIN Insulin Aspart 0 units 04/17/25 13:15 04/18/25 08:51 Insulin Aspart Per Unit Charge SC 05/17/25 13:14 4 units ACHS DIOGENES Administration Magnesium Oxide 400 mg 04/16/25 21:00 04/18/25 10:30 Magnesium Oxide 400 Mg Tab PO 05/16/25 20:59 400 mg BID@1100,1900 DIOGENES Administration Melatonin 3 mg 04/16/25 18:24 04/17/25 20:21 Melatonin 3 Mg Tab PO 05/16/25 18:23 3 mg HS PRN Administration Sleep Metoprolol Succinate 50 mg 04/17/25 21:00 04/18/25 08:52 Metoprolol Succ 50mg Ext Rel Tab PO 05/17/25 20:59 50 mg BID DIOGENES Administration Multivitamins 1 tab 04/17/25 09:00 04/18/25 08:53 Multivitamin Tab PO 05/17/25 08:59 1 tab QAM DIOGENES Administration Pantoprazole Sodium 40 mg 04/17/25 06:30 04/18/25 09:08 Pantoprazole 40 Mg Tab PO 05/17/25 06:29 40 mg DAILYBB DIOGENES Administration Prednisone 40 mg 04/17/25 09:00 04/18/25 08:53 Prednisone 20 Mg Tab PO 04/21/25 09:01 40 mg DAILY DIOGENES Administration Sodium Chloride 4 ml 04/16/25 19:00 04/18/25 07:06 Sodium Chlor 7% 4 Ml Neb NEB 05/16/25 18:59 4 ml BIDR DIOGENES Administration Thiamine HCl 100 mg 04/17/25 09:00 04/18/25 08:53 Thiamine Hcl 100 Mg Tab PO 05/17/25 08:59 100 mg DAILY DIOGENES Administration Umeclidinium/Vilanterol 1 puffs 04/17/25 09:00 04/18/25 08:53 Umeclidinium/Vilanterol 62.5/25mcg 7 Puffs/Inhaler INH 05/17/25 08:59 1 puffs DAILY DIOGENES Administration Vitamin D 50 mcg 04/17/25 09:00 04/18/25 08:51 Cholecalciferol 25 Mcg (1000 Units) Tab PO 05/17/25 08:59 50 mcg DAILY DIOGENES Administration PG Care Time/CCT Total # of Minutes Spent Total Time Spent with Patient: Total time spent is greater than 50% in coordination of care (as documented) at patient's floor/unit and/or counseling patient: Coding Level of Care Code 20310 SUB INP/OBS CARE 3/50MIN Diagnoses Atrial fibrillation with rapid ventricular response I48.91 Pneumonia J18.9 HTN (hypertension) I10 Dyslipidemia, goal LDL below 100 E78.5 COPD (chronic obstructive pulmonary disease) J44.9 CKD (chronic kidney disease) N18.9
--- NOTE | 2025-04-18 14:11 | Hospitalist Progress Note ---
Date of Service April 18, 2025 Assessment & Plan (1) Atrial fibrillation with rapid ventricular response: Plan: 75 year old female with past medical history significant for COPD Stage II former smoker, CAD, HFpEF, Paroxysmal Afib on anticoagulation with Eliquis history of multiple ablations, HTN, CKD III, OA, macrocyctic anemia, PAD, h/o ETOH abuse, and others presenting with palpitations, cough. Transferred here from [facility] with tachycardia, heart rate 160's, palpitations, found to be in afib RVR and has been without rate control for over a week. Also with palpitations and nonproductive cough, feels like she can't get anything up. Patient was admitted to [facility] on 04/05/25 for weakness and fall s/p laminectomy 7 weeks prior to the fall. Imaging of right ankle showed nondisplaced right tib fib fracture. She was splinted with no surgical intervention. Hospitalization was complicated by a possible pneumonia and uti; discharged to [facility] on 04/10/25 for rehab. Patient was on sotalol BID dosing for Afib rate control, but this did not transfer when transitioning between facilities. Anticoagulation with Eliquis was given at [facility]. Afib RVR Admitted to PCU Tele ECHO w/ EF of 50-55%, no RWMA. TSH wnl Cardiology on board, appreciate recs Started on Cardizem drip but the patient could not tolerate Currently on amiodarone, c/w metoprolol Heart rate is reasonably controlled around 90s today and the patient remains free from any cardiac symptoms Acute Hypoxic Respiratory Failure 2/2 LLL pneumonia likely HAP: given recent hospitalization/rehab. Hypoxia noted, with 2 LPM requirement. Cefepime given in the ED-> will continue Cefepime for pseudomonas coverage; c/w doxy Biofire negative. wbc improving, pt afebrile, feels better w/ sob. sputum culture growing Pseudomonas aeruginosa- sensitivities pending COPD EXACERBATION History of COPD 2/2 alf smoking history. Prednisone 40mg po daily x 5 days. incentive spirometer and flutter valve for pulmonary toileting c/w duonebs, home trelegy. Clinically much better without any wheezing and saturating normally on 1 L nasal cannula HFpEF BNP 930 Continue home diuretic Defer to Cardiology for additional recs on diuretics TONO Creatinine has gone up to 1.30 Noted to have a total negative balance of 9 L since admission Will give her 1 L of normal saline cautiously and advised to drink more fluid Monitor PRP Hyperglycemia: SSI, will get A1c DVT Ppx: on Eliquis Code status: Full PCP: Dr. Kevin Salazar Dispo:pt/ot (2) Pneumonia: (3) COPD (chronic obstructive pulmonary disease): (4) Acute and chronic respiratory failure: Admission and Anticipated Discharge Date Admission Date: April 16, 2025 Subjective The patient was seen and examined in telemetry unit She has been feeling much better today and remains weak and lethargic Denies any cough or any shortness of breath at rest Has been saturating normally on 1 L nasal cannula Review of Systems Review of Systems: all systems reviewed and are unremarkable except as noted below Physical Exam Physical Exam: sitting at the edge of the bed without any acute distress Constitutional: well developed, well nourished and + ill appearing Eyes: PERRL, conjunctivae normal, anicteric sclerae ENMT: external ear and nose normal, oropharynx normal Neck: trachea midline, no thyromegaly Respiratory: no respiratory distress Auscultation: + diminished lung sounds and + crackles ( occasional crackles bibasilarly, left more than right) Cardiovascular: Rate/Rhythm: + tachycardic and + irregularly irregular Heart Sounds: normal S1 and normal S2; no murmur Extremities: no edema Gastrointestinal (Abdomen): Inspection/Auscultation: normal bowel sounds; abdomen not distended Percussion/Palpation: abdomen soft; abdomen nontender Musculoskeletal: No acute arthritis involving any of the joint. right lower leg is splinted due to recent fall with tibia-fibula fracture Skin: Generalized bruising Neurologic: normal touch/pain/proprioception, moves all extremities and + focal motor deficit Lymphatic: no cervical or axillary lymphadenopathy Results & Data Results & Data Vital Signs (Past 12 Hours) Vital Signs Temp Pulse Pulse Resp BP BP Pulse Ox 04/18/25 11:16 36.6 C 96 H 20 121/92 92 04/18/25 10:30 89 04/18/25 07:11 36.3 C L 90 20 129/74 100 04/18/25 07:07 94 H 18 93 04/18/25 04:28 36.4 C L 94 H 19 118/75 94 O2 Del Method O2 Flow Rate 04/18/25 11:16 Nasal Cannula 1.0 04/18/25 10:30 04/18/25 07:11 Nasal Cannula 1 04/18/25 07:07 Nasal Cannula 1 04/18/25 04:28 Room Air Laboratory Results Short CBC 04/18/25 Range/Units 06:06 WBC 12.39 H (4.8-10.8) K/ul Hgb 11.3 L (12.0-16.0) g/dl Hct 35.9 L (37.0-47.0) % Plt Count 327 (130-400) K/uL BMP 04/18/25 06:06 Sodium 133 L Potassium 4.1 Chloride 94 L Carbon Dioxide 33 H BUN 52 H Creatinine 1.30 H D Glucose 159 H Calcium 8.7 Medications Administered Current Inpatient Medications Acetaminophen (Acetaminophen 325 Mg Tab) 650 mg PO Q4H PRN PRN Reason: Pain or Fever Stop: 05/16/25 18:23 Last Admin: 04/17/25 19:08 Dose: 650 mg Al Hydrox/Mg Hydrox/Simethicone (Aluminum/Magnesium Susp 30 Ml Udc) 15 ml PO Q4H PRN PRN Reason: Dyspepsia Stop: 05/16/25 18:23 Albuterol (Albuterol 0.083% Nebu Soln 3 Ml Vial) 2.5 mg NEB Q4R PRN; Protocol PRN Reason: Shortness Of Breath Or Wheezing Stop: 05/16/25 22:05 Last Admin: 04/17/25 17:49 Dose: 2.5 mg Apixaban (Apixaban 5 Mg Tablet) 5 mg PO BID [facility] Stop: 05/16/25 20:59 Last Admin: 04/18/25 08:51 Dose: 5 mg Aspirin (Aspirin 81 Mg Ectab) 81 mg PO DAILY [facility] Stop: 05/17/25 08:59 Last Admin: 04/18/25 08:51 Dose: 81 mg Dextrose (Dextrose 50% 50 Ml Syringe) 25 - 50 ml IV UD PRN; Protocol PRN Reason: Hypoglycemia Protocol Stop: 05/17/25 13:01 Diclofenac Sodium (Diclofenac Sod 1% Gel 100 Gm Tube) 2 gm EXT TID DIOGENES; Protocol Stop: 05/16/25 20:59 Last Admin: 04/18/25 12:57 Dose: 2 gm Digoxin (Digoxin 0.125 Mg Tab) 0.125 mg PO DAILY@1600 [facility] Stop: 05/18/25 09:14 Last Admin: 04/18/25 10:30 Dose: 0.125 mg Docusate Sodium (Docusate Sodium 100 Mg Cap) 100 mg PO BID PRN PRN Reason: Constipation Stop: 05/16/25 16:12 Last Admin: 04/16/25 21:37 Dose: 100 mg Doxycycline Hyclate (Doxycycline Hyclate 100 Mg Cap) 100 mg PO BID DIOGENES Stop: 04/22/25 06:59 Last Admin: 04/18/25 08:52 Dose: 100 mg Fluticasone Furoate (Fluticasone Furoate 200mcg 14 Puffs/Inhaler) 1 puffs INH DAILY DIOGEN[facility] Stop: 05/17/25 08:59 Last Admin: 04/18/25 08:52 Dose: 1 puffs Folic Acid (Folic Acid 1 Mg Tab) 1 mg PO DAILY DIOGENES Stop: 05/17/25 08:59 Last Admin: 04/18/25 08:52 Dose: 1 mg Gabapentin (Gabapentin 300 Mg Cap) 300 mg PO BID DIOGENES Stop: 05/16/25 20:59 Last Admin: 04/18/25 08:52 Dose: 300 mg Glucagon (Glucagon For Inj 1 Mg Vial) 1 mg SQ UD PRN; Protocol PRN Reason: Hypoglycemia Protocol Stop: 05/17/25 13:01 Glucose (Glucose 40% Gel 15 Gm Tube) 15 - 30 gm PO UD PRN; Protocol PRN Reason: Hypoglycemia Protocol Stop: 05/17/25 13:01 Glucose (Glucose 10 Tab/Tube) 4 - 8 tab PO UD PRN; Protocol PRN Reason: Hypoglycemia Protocol Stop: 05/17/25 13:01 Cefepime HCl (Maxipime 2000mg) 2,000 mg in 20 mls @ 5 mls/min IV Q12H DIOGENES; Protocol Stop: 04/21/25 14:59 Last Admin: 04/18/25 04:13 Dose: 5 mls/min Amiodarone HCl/Dextrose (Nexterone / D5w) 360 mg in 200 mls @ 16.667 mls/hr IV .Q12H [facility] Stop: 05/17/25 19:14 Last Admin: 04/18/25 08:51 Dose: 0.5 mg/min, 16.7 mls/hr Insulin Aspart (Insulin Aspart Per Unit Charge) 0 units SC ACHS DIOGENES Stop: 05/17/25 13:14 Last Admin: 04/18/25 12:57 Dose: 4 units Magnesium Hydroxide (Magnesium Hydroxide Susp 30 Ml Udc) 30 ml PO Q12H PRN PRN Reason: Constipation Stop: 05/16/25 18:23 Magnesium Oxide (Magnesium Oxide 400 Mg Tab) 400 mg PO BID@1100,1900 [facility]IOGEN[facility] Stop: 05/16/25 20:59 Last Admin: 04/18/25 10:30 Dose: 400 mg Melatonin (Melatonin 3 Mg Tab) 3 mg PO HS PRN PRN Reason: Sleep Stop: 05/16/25 18:23 Last Admin: 04/17/25 20:21 Dose: 3 mg Metoprolol Succinate (Metoprolol Succ 50mg Ext Rel Tab) 50 mg PO BID DIOGENES Stop: 05/17/25 20:59 Last Admin: 04/18/25 08:52 Dose: 50 mg Miscellaneous (Carbohydrates For Hypoglycemia ) 15 - 30 gm PO UD PRN PRN Reason: Hypoglycemia Protocol Stop: 05/17/25 13:01 Multivitamins (Multivitamin Tab) 1 tab PO QAM DIOGENES Stop: 05/17/25 08:59 Last Admin: 04/18/25 08:53 Dose: 1 tab Pantoprazole Sodium (Pantoprazole 40 Mg Tab) 40 mg PO DAILYBB DIOGENES Stop: 05/17/25 06:29 Last Admin: 04/18/25 09:08 Dose: 40 mg Polyethylene Glycol (Polyethylene (Miralax) 17 Gm Pack) 17 gm PO DAILY PRN PRN Reason: Constipation Stop: 05/16/25 18:23 Prednisone (Prednisone 20 Mg Tab) 40 mg PO DAILY DIOGENES Stop: 04/21/25 09:01 Last Admin: 04/18/25 08:53 Dose: 40 mg Sodium Chloride (Sodium Chlor 7% 4 Ml Neb) 4 ml NEB BIDR DIOGENES Stop: 05/16/25 18:59 Last Admin: 04/18/25 07:06 Dose: 4 ml Thiamine HCl (Thiamine Hcl 100 Mg Tab) 100 mg PO DAILY DIOGENES Stop: 05/17/25 08:59 Last Admin: 04/18/25 08:53 Dose: 100 mg Umeclidinium/Vilanterol (Umeclidinium/Vilanterol 62.5/25mcg 7 Puffs/Inhaler) 1 puffs INH DAILY DIOGENES Stop: 05/17/25 08:59 Last Admin: 04/18/25 08:53 Dose: 1 puffs Vitamin D (Cholecalciferol 25 Mcg (1000 Units) Tab) 50 mcg PO DAILY DIOGENES Stop: 05/17/25 08:59 Last Admin: 04/18/25 08:51 Dose: 50 mcg
[2025-04-18] MEDS: SODIUM CHLORIDE 0.9% 1,000 ML IV SCH (15:59)
[2025-04-18] MEDS: MELATONIN 3 MG TAB PO PRN (22:11)
[2025-04-19 07:04] LABS: Hematocrit (blood only) 35.5 % (37.0-47.0); Hemoglobin 11.2 g/dl (12.0-16.0); Immature Granulocytes # (auto) 0.57 K/uL (0.01-0.20); Immature Granulocytes % (auto) 4.4 %; Mean Corpuscular Hemoglobin 33.3 pg (25.0-34.0); Mean Corpuscular Volume 105.7 fL (80.0-100.0); Platelet Count 286 K/uL (130-400); RDW Standard Deviation 56.1 fL (36.4-46.3); Red Blood Count 3.36 M/uL (4.20-5.40); White Blood Count 13.01 K/ul (4.8-10.8)
[2025-04-19 07:30] LABS: Hemoglobin A1C 8.3 % (4.5-5.6)
[2025-04-19 07:37] LABS: Anion Gap 5.0 (3-11); Blood Urea Nitrogen 44.0 mg/dl (6-23); Calcium 8.8 mg/dl (8.6-10.3); Carbon Dioxide 35.0 mmol/L (21-32); Chloride 98.0 mmol/L (98-107); Creatinine Clr Calc Pharmacy 51.5 ml/min; Glucose 147.0 mg/dl (70-99(Fasting)); Magnesium 2.1 mg/dl (1.7-2.4); Potassium 4.5 mmol/L (3.5-5.1); Sodium 138.0 mmol/L (136-145)
--- NOTE | 2025-04-19 10:50 | Cardiology Progress Note ---
Date of Service April 19, 2025 Assessment & Plan (1) Atrial fibrillation with rapid ventricular response: (2) Pneumonia: (3) HTN (hypertension): (4) Dyslipidemia, goal LDL below 100: (5) COPD (chronic obstructive pulmonary disease): (6) CKD (chronic kidney disease): Plan 75-year-old female admitted to [facility] on April 16, 2025 from [facility] with recurrent atrial fibrillation with a rapid ventricular response. [id number] Score 5 points with patient chronically prescribed Eliquis anticoagulation (? interrupted when hospitalized at [facility]' post fall circa 2 weeks ago). Options of management discussed. We specifically discussed rate versus rhythm control strategies, resumption of antiarrhythmic therapy with sotalol, alternative antiarrhythmic therapy including the risks and benefits of amiodarone, risks and benefits of continuing versus discontinuing anticoagulation, etc. Patient currently asymptomatic. Atrial fibrillation with rapid ventricular response -> CVR Pneumonia HTN Dyslipidemia COPD CKD patient refractory to anti-arrhythmic management -> will continue rate control strategy stable from cardiac standpoint for LEONILA F/U with primary EP post discharge DC IV amiodarone cont Digoxin 0.125MG PO daily increased metoprolol succinate to 75mg po BID increase fluid intake DCd Bumex abx as per primary team correct and f/u electrolytes keep K between 4 and 4.5 and Mg 2 and 2.5 when on Digoxin f/u renal function continue Eliquis adjust rate control meds keeping HR between 60 to 100 BPM and systolic BP between 100-140 mmHg avoid hypovolemia keep patient euvolemic salt restriction DW patient Admission and Anticipated Discharge Date Admission Date: April 16, 2025 Subjective Patient on exam is lying in bed in NAD; no c/o cp, sob, palpitations, dizziness, LOC; feels better Review of Systems Review of Systems: All systems reviewed & are unremarkable except as noted in HPI & below Physical Exam Physical Exam: General: A&Ox3. NAD. HENT: Normocephalic. Atraumatic. Eyes: Conjunctiva pink, sclera pale Neck: No JVD. Carotid bruits. Heart: Irregularly irregular. Soft systolic murmur. No diastolic murmur. Lungs: no rales, no wheezing Abdomen: +BS. Soft. Nontender. No masses or organomegaly. Extremities: Marked ecchymosis noted on all extremities. no edema. Limited neurological examination is without focal deficits. Results & Data Vital Signs (Past 12 Hours) Vital Signs Vital Signs Temp 36.9 C 04/19/25 09:08 Pulse 92 H 04/19/25 09:08 Resp 18 04/19/25 09:08 BP 136/86 04/19/25 09:08 Pulse Ox 92 04/19/25 09:08 O2 Del Method Room Air 04/19/25 09:08 O2 Flow Rate 3 04/19/25 07:12 Intake & Output 04/18/25 04/19/25 04/19/25 18:59 06:59 18:59 Intake Total 440 / 7502.486 9036.287 / 1889.287 200 / 200 Output Total 9001 / 32240 1351 / 06265 Balance -8561 / -8462.713 98.287 / -8462.713 200 / 200 Weight 68.6 kg Intake: IV 200 / 1316.506 5275.287 / 1399.287 200 / 200 Amiodarone / D5w 360 mg In 200 200 / 399.287 199.287 / 399.287 200 / 200 ml @ 0.5 MG/MIN 16.667 mls/hr IV .Q12H DIOGENES Rx#:[id number] Sodium Chloride 0.9% 1,000 ml @ 1000 / 1000 80 mls/hr IV .[id number] DIOGENES Rx#: [id number] dilTIAZem HCL 125 mg In 0 / 0 Dextrose 5% 100 ml @ 0 MG/HR IV .Q0M DIOGENES Rx#:[id number] Oral 240 / 490 250 / 490 Output: Urine 9000 / 9000 Urine Amount (Catheter) 1350 / 1350 External 1350 / 1350 # Bowel Movements 1 / 2 1 / 2 Other: # Unmeasured Voids 1 1 Temp Pulse Resp BP Pulse Ox O2 Del Method O2 Flow Rate 04/19/25 09:08 36.9 C 92 H 18 136/86 92 Room Air 04/19/25 07:12 70 18 98 Nasal Cannula 3 04/19/25 03:05 36.6 C 75 18 121/81 97 Nasal Cannula Laboratory Results 04/19/25 04/19/25 04/18/25 Range/Units 07:22 06:37 20:07 WBC 13.01 H (4.8-10.8) K/ul RBC 3.36 L (4.20-5.40) M/uL Hgb 11.2 L (12.0-16.0) g/dl Hct 35.5 L (37.0-47.0) % MCV 105.7 H (80.0-100.0) fL MCH 33.3 (25.0-34.0) pg MCHC 31.5 L (32.0-36.0) g/dL RDW Std Deviation 56.1 H (36.4-46.3) fL RDW Coeff of Nora 14.8 H (11.5-14.5) % Plt Count 286 (130-400) K/uL MPV 10.6 (9.4-12.4) fL Immature Gran % (Auto) 4.4 % Neut % (Auto) 80.9 % Lymph % (Auto) 8.1 % Briscoe % (Auto) 6.0 % Eos % (Auto) 0.3 % Baso % (Auto) 0.3 % Neut # (Auto) 10.53 H (1.40-6.50) K/uL Lymph # (Auto) 1.05 L (1.20-3.40) K/uL Briscoe # (Auto) 0.78 H (0.11-0.59) K/uL Eos # (Auto) 0.04 (0.00-0.50) K/uL Baso # (Auto) 0.04 (0.00-0.20) K/uL Immature Gran # (Auto) 0.57 H (0.01-0.20) K/uL Absolute Nucleated RBC 0.02 (0.00-0.12) K/uL Nucleated RBC % (auto) 0.2 % Sodium 138 (136-145) mmol/L Potassium 4.5 (3.5-5.1) mmol/L Chloride 98 (98-107) mmol/L Carbon Dioxide 35 H (21-32) mmol/L Anion Gap 5 (3-11) BUN 44 H (6-23) mg/dl Creatinine 0.84 D (0.6-1.2) mg/dl Est Cr Clr Drug Dosing 51.5 ml/min eGFR 73.33 BUN/Creatinine Ratio 52.4 H (10-20) Glucose 147 H (70-99(Fasting)) mg/dl POC Glucose 153 H 209 H (70-99) mg/dl Estimat Average Glucose 192 mg/dl Hemoglobin A1c 8.3 H (4.5-5.6) % Calcium 8.8 (8.6-10.3) mg/dl Magnesium 2.1 (1.7-2.4) mg/dl 04/18/25 04/18/25 Range/Units 16:27 11:25 WBC (4.8-10.8) K/ul RBC (4.20-5.40) M/uL Hgb (12.0-16.0) g/dl Hct (37.0-47.0) % MCV (80.0-100.0) fL MCH (25.0-34.0) pg MCHC (32.0-36.0) g/dL RDW Std Deviation (36.4-46.3) fL RDW Coeff of Nora (11.5-14.5) % Plt Count (130-400) K/uL MPV (9.4-12.4) fL Immature Gran % (Auto) % Neut % (Auto) % Lymph % (Auto) % Briscoe % (Auto) % Eos % (Auto) % Baso % (Auto) % Neut # (Auto) (1.40-6.50) K/uL Lymph # (Auto) (1.20-3.40) K/uL Briscoe # (Auto) (0.11-0.59) K/uL Eos # (Auto) (0.00-0.50) K/uL Baso # (Auto) (0.00-0.20) K/uL Immature Gran # (Auto) (0.01-0.20) K/uL Absolute Nucleated RBC (0.00-0.12) K/uL Nucleated RBC % (auto) % Sodium (136-145) mmol/L Potassium (3.5-5.1) mmol/L Chloride (98-107) mmol/L Carbon Dioxide (21-32) mmol/L Anion Gap (3-11) BUN (6-23) mg/dl Creatinine (0.6-1.2) mg/dl Est Cr Clr Drug Dosing ml/min eGFR BUN/Creatinine Ratio (10-20) Glucose (70-99(Fasting)) mg/dl POC Glucose 217 H 154 H (70-99) mg/dl Estimat Average Glucose mg/dl Hemoglobin A1c (4.5-5.6) % Calcium (8.6-10.3) mg/dl Magnesium (1.7-2.4) mg/dl Diagnostic Findings Laboratory Results WBC 13.01 K/ul (4.8-10.8) H 04/19/25 06:37 RBC 3.36 M/uL (4.20-5.40) L 04/19/25 06:37 Hgb 11.2 g/dl (12.0-16.0) L 04/19/25 06:37 Hct 35.5 % (37.0-47.0) L 04/19/25 06:37 MCV 105.7 fL (80.0-100.0) H 04/19/25 06:37 MCH 33.3 pg (25.0-34.0) 04/19/25 06:37 MCHC 31.5 g/dL (32.0-36.0) L 04/19/25 06:37 RDW Std Deviation 56.1 fL (36.4-46.3) H 04/19/25 06:37 RDW Coeff of Nora 14.8 % (11.5-14.5) H 04/19/25 06:37 Plt Count 286 K/uL (130-400) 04/19/25 06:37 MPV 10.6 fL (9.4-12.4) 04/19/25 06:37 Immature Gran % (Auto) 4.4 % 04/19/25 06:37 Neut % (Auto) 80.9 % 04/19/25 06:37 Lymph % (Auto) 8.1 % 04/19/25 06:37 Briscoe % (Auto) 6.0 % 04/19/25 06:37 Eos % (Auto) 0.3 % 04/19/25 06:37 Baso % (Auto) 0.3 % 04/19/25 06:37 Neut # (Auto) 10.53 K/uL (1.40-6.50) H 04/19/25 06:37 Lymph # (Auto) 1.05 K/uL (1.20-3.40) L 04/19/25 06:37 Briscoe # (Auto) 0.78 K/uL (0.11-0.59) H 04/19/25 06:37 Eos # (Auto) 0.04 K/uL (0.00-0.50) 04/19/25 06:37 Baso # (Auto) 0.04 K/uL (0.00-0.20) 04/19/25 06:37 Immature Gran # (Auto) 0.57 K/uL (0.01-0.20) H 04/19/25 06:37 Absolute Nucleated RBC 0.02 K/uL (0.00-0.12) 04/19/25 06:37 Nucleated RBC % (auto) 0.2 % 04/19/25 06:37 Hypersegmented Neuts 1+ 04/16/25 13:54 Toxic Vacuolation 1+ 04/16/25 13:54 Polychromasia 1+ 04/16/25 13:54 Basophilic Stippling 1+ 04/16/25 13:54 PT 11.3 Seconds (9.0-12.0) 04/16/25 13:54 INR 1.0 (0.9-1.1) 04/16/25 13:54 APTT 25 Seconds (21-31) 04/16/25 13:54 PTT Ratio 0.9 04/16/25 13:54 Sodium 138 mmol/L (136-145) 04/19/25 06:37 Potassium 4.5 mmol/L (3.5-5.1) 04/19/25 06:37 Chloride 98 mmol/L (98-107) 04/19/25 06:37 Carbon Dioxide 35 mmol/L (21-32) H 04/19/25 06:37 Anion Gap 5 (3-11) 04/19/25 06:37 BUN 44 mg/dl (6-23) H 04/19/25 06:37 Creatinine 0.84 mg/dl (0.6-1.2) D 04/19/25 06:37 Est Cr Clr Drug Dosing 51.5 ml/min 04/19/25 06:37 eGFR 73.33 04/19/25 06:37 BUN/Creatinine Ratio 52.4 (10-20) H 04/19/25 06:37 Glucose 147 mg/dl (70-99(Fasting)) H 04/19/25 06:37 POC Glucose 153 mg/dl (70-99) H 04/19/25 07:22 Estimat Average Glucose 192 mg/dl 04/19/25 06:37 Hemoglobin A1c 8.3 % (4.5-5.6) H 04/19/25 06:37 Calcium 8.8 mg/dl (8.6-10.3) 04/19/25 06:37 Phosphorus 2.8 mg/dl (2.5-4.9) D 04/18/25 06:06 Magnesium 2.1 mg/dl (1.7-2.4) 04/19/25 06:37 Total Bilirubin 0.6 mg/dl (0.2-1.0) 04/16/25 13:54 AST 24 U/L (13-39) 04/16/25 13:54 ALT 32 U/L (7-52) 04/16/25 13:54 Alkaline Phosphatase 77 U/L (34-104) 04/16/25 13:54 Troponin I High Sens 52.3 pg/ml (0-14) H* D 04/16/25 18:37 B-Natriuretic Peptide 930 pg/ml (0-100) H 04/16/25 13:54 Total Protein 6.2 gm/dl (6.0-8.3) 04/16/25 13:54 Albumin 3.3 gm/dl (3.4-5.0) L 04/16/25 13:54 Globulin 2.9 gm/dl (2.5-4.0) 04/16/25 13:54 Albumin/Globulin Ratio 1.1 (0.9-2) 04/16/25 13:54 Lipase 42 U/L (11-82) 04/16/25 13:54 TSH 0.894 uIu/ml (0.300-4.500) 04/16/25 18:37 Nasal Screen MRSA (PCR) Negative (Negative) 04/16/25 Unknown Adenovirus (PCR) Not Detected (NotDetected) 04/16/25 Unknown B. pertussis DNA (PCR) Not Detected (NotDetected) 04/16/25 Unknown B.parapertussis DNA PCR Not Detected (NotDetected) 04/16/25 Unknown C. pneumoniae DNA (PCR) Not Detected (NotDetected) 04/16/25 Unknown Coronavirus OC43 (PCR) Not Detected (NotDetected) 04/16/25 Unknown Coronavirus HKU1 (PCR) Not Detected (NotDetected) 04/16/25 Unknown Coronavirus 229E (PCR) Not Detected (NotDetected) 04/16/25 Unknown SARS-CoV-2 (PCR) Not Detected (NotDetected) 04/16/25 Unknown Coronavirus NL63 (PCR) Not Detected (NotDetected) 04/16/25 Unknown Human Metapneumovir PCR Not Detected (NotDetected) 04/16/25 Unknown Influenza Type A (PCR) Not Detected (NotDetected) 04/16/25 Unknown Influenza Type B (PCR) Not Detected (NotDetected) 04/16/25 Unknown M. pneumoniae (PCR) Not Detected (NotDetected) 04/16/25 Unknown Parainfluenza 1 (PCR) Not Detected (NotDetected) 04/16/25 Unknown Parainfluenza 2 (PCR) Not Detected (NotDetected) 04/16/25 Unknown Parainfluenza 3 (PCR) Not Detected (NotDetected) 04/16/25 Unknown Parainfluenza 4 (PCR) Not Detected (NotDetected) 04/16/25 Unknown RSV (PCR) Not Detected (NotDetected) 04/16/25 Unknown Entero/Rhino (PCR) Not Detected (NotDetected) 04/16/25 Unknown Impressions Chest X-Ray 04/16/25 13:02 XR chest 1V portable CLINICAL HISTORY: Chest pain, nonspecific COMPARISON STUDY: None FINDINGS: Thoracic spine neurostimulator is present. There is moderate cardiomegaly without pulmonary vascular congestion. There is bandlike opacity at the left mid to lower lung. No other consolidation or pleural effusion. No pneumothorax. IMPRESSION: Opacity at the left mid and lower lung could represent scarring, atelectasis, or early pneumonia. ACT 112: Negative or not required by law. Electronically signed by: Bj King M.D. 04/16/2025 1:24 PM PG Care Time/CCT Total # of Minutes Spent Total Time Spent with Patient: Total time spent is greater than 50% in coordination of care (as documented) at patient's floor/unit and/or counseling patient: Coding Level of Care Code 37728 SUB INP/OBS CARE 3/50MIN Diagnoses Atrial fibrillation with rapid ventricular response I48.91 Pneumonia J18.9 HTN (hypertension) I10 Dyslipidemia, goal LDL below 100 E78.5 COPD (chronic obstructive pulmonary disease) J44.9 CKD (chronic kidney disease) N18.9
[2025-04-19] MEDS: METOPROLOL SUCC 25MG EXT REL TAB PO ONE (12:30)
--- NOTE | 2025-04-19 14:18 | Hospitalist Progress Note ---
Date of Service April 19, 2025 Assessment & Plan (1) Atrial fibrillation with rapid ventricular response: Plan: 75 year old female with past medical history significant for COPD Stage II former smoker, CAD, HFpEF, Paroxysmal Afib on anticoagulation with Eliquis history of multiple ablations, HTN, CKD III, OA, macrocyctic anemia, PAD, h/o ETOH abuse, and others presenting with palpitations, cough. Transferred here from [facility] with tachycardia, heart rate 160's, palpitations, found to be in afib RVR and has been without rate control for over a week. Also with palpitations and nonproductive cough, feels like she can't get anything up. Patient was admitted to [facility] on 04/05/25 for weakness and fall s/p laminectomy 7 weeks prior to the fall. Imaging of right ankle showed nondisplaced right tib fib fracture. She was splinted with no surgical intervention. Hospitalization was complicated by a possible pneumonia and uti; discharged to [facility] on 04/10/25 for rehab. Patient was on sotalol BID dosing for Afib rate control, but this did not transfer when transitioning between facilities. Anticoagulation with Eliquis was given at [facility]. Afib RVR Admitted to PCU Tele ECHO w/ EF of 50-55%, no RWMA. TSH wnl Cardiology on board, appreciate recs Started on Cardizem drip but the patient could not tolerate Currently on amiodarone, c/w metoprolol Heart rate is reasonably controlled around 90s today and the patient remains free from any cardiac symptoms Her heart rate is controlled and director river restoration cleared her from discharge Acute Hypoxic Respiratory Failure 2/2 LLL pneumonia likely HAP: given recent hospitalization/rehab. Hypoxia noted, with 2 LPM requirement. Cefepime given in the ED-> will continue Cefepime for pseudomonas coverage; c/w doxy Biofire negative. wbc improving, pt afebrile, feels better w/ sob. 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 Prednisone 40mg po daily x 5 days. incentive spirometer and flutter valve for pulmonary toileting c/w duonebs, home trelegy. Clinically much better without any wheezing and saturating normally on 1 L nasal cannula Clinically improved HFpEF BNP 930 Continue home diuretic Defer to Cardiology for additional recs on diuretics TONO Creatinine has gone up to 1.30 Noted to have a total negative balance of 9 L since admission Will give her 1 L of normal saline cautiously and advised to drink more fluid Monitor PRP- kidney functions remained stable Hyperglycemia: SSI, will get A1c DVT Ppx: on Eliquis Code status: Full PCP: Dr. Kevin Salazar Dispo:pt/ot (2) Pneumonia: (3) COPD (chronic obstructive pulmonary disease): (4) Acute and chronic respiratory failure: Admission and Anticipated Discharge Date Admission Date: April 16, 2025 Subjective The patient was seen and examined in telemetry unit She has been feeling much better today and remains weak and lethargic Denies any cough or any shortness of breath at rest Has been saturating normally on 1 L nasal cannula 04/19/2025 The patient was seen and examined in telemetry unit She has been complaining of pain in the back secondary to lying in bed most of the time She wants to participate in physical therapy but due to pain not being able to She has been accepted to facility likely to be transferred tomorrow Review of Systems Review of Systems: all systems reviewed and are unremarkable except as noted below Physical Exam Physical Exam: sitting at the edge of the bed without any acute distress Constitutional: well developed, well nourished and + ill appearing Eyes: PERRL, conjunctivae normal, anicteric sclerae ENMT: external ear and nose normal, oropharynx normal Neck: trachea midline, no thyromegaly Respiratory: no respiratory distress Auscultation: + diminished lung sounds and + crackles ( occasional crackles bibasilarly, left more than right) Cardiovascular: Rate/Rhythm: + tachycardic and + irregularly irregular Heart Sounds: normal S1 and normal S2; no murmur Extremities: no edema Gastrointestinal (Abdomen): Inspection/Auscultation: normal bowel sounds; abdomen not distended Percussion/Palpation: abdomen soft; abdomen nontender Neurologic: normal touch/pain/proprioception, moves all extremities and + focal motor deficit Lymphatic: no cervical or axillary lymphadenopathy Results & Data Results & Data Vital Signs (Past 12 Hours) Vital Signs Temp Pulse Pulse Resp BP Pulse Ox O2 Del Method 04/19/25 12:20 36.8 C 95 H 18 121/81 97 Room Air 04/19/25 09:08 36.9 C 92 H 18 136/86 92 Room Air 04/19/25 07:12 70 18 98 Nasal Cannula 04/19/25 05:13 90 04/19/25 03:05 36.6 C 75 18 121/81 97 Nasal Cannula O2 Flow Rate 04/19/25 12:20 04/19/25 09:08 04/19/25 07:12 3 04/19/25 05:13 04/19/25 03:05 Laboratory Results Short CBC 04/19/25 Range/Units 06:37 WBC 13.01 H (4.8-10.8) K/ul Hgb 11.2 L (12.0-16.0) g/dl Hct 35.5 L (37.0-47.0) % Plt Count 286 (130-400) K/uL BMP 04/19/25 06:37 Sodium 138 Potassium 4.5 Chloride 98 Carbon Dioxide 35 H BUN 44 H Creatinine 0.84 D Glucose 147 H Calcium 8.8 Medications Administered Current Inpatient Medications Acetaminophen (Acetaminophen 325 Mg Tab) 650 mg PO Q4H PRN PRN Reason: Pain or Fever Stop: 05/16/25 18:23 Last Admin: 04/17/25 19:08 Dose: 650 mg Al Hydrox/Mg Hydrox/Simethicone (Aluminum/Magnesium Susp 30 Ml Udc) 15 ml PO Q4H PRN PRN Reason: Dyspepsia Stop: 05/16/25 18:23 Albuterol (Albuterol 0.083% Nebu Soln 3 Ml Vial) 2.5 mg NEB Q4R PRN; Protocol PRN Reason: Shortness Of Breath Or Wheezing Stop: 05/16/25 22:05 Last Admin: 04/17/25 17:49 Dose: 2.5 mg Apixaban (Apixaban 5 Mg Tablet) 5 mg PO BID [facility] Stop: 05/16/25 20:59 Last Admin: 04/19/25 09:13 Dose: 5 mg Aspirin (Aspirin 81 Mg Ectab) 81 mg PO DAILY [facility] Stop: 05/17/25 08:59 Last Admin: 04/19/25 09:13 Dose: 81 mg Dextrose (Dextrose 50% 50 Ml Syringe) 25 - 50 ml IV UD PRN; Protocol PRN Reason: Hypoglycemia Protocol Stop: 05/17/25 13:01 Diclofenac Sodium (Diclofenac Sod 1% Gel 100 Gm Tube) 2 gm EXT TID [facility]; Protocol Stop: 05/16/25 20:59 Last Admin: 04/19/25 09:14 Dose: 2 gm Digoxin (Digoxin 0.125 Mg Tab) 0.125 mg PO DAILY@1600 [facility] Stop: 05/18/25 09:14 Last Admin: 04/18/25 10:30 Dose: 0.125 mg Docusate Sodium (Docusate Sodium 100 Mg Cap) 100 mg PO BID PRN PRN Reason: Constipation Stop: 05/16/25 16:12 Last Admin: 04/16/25 21:37 Dose: 100 mg Doxycycline Hyclate (Doxycycline Hyclate 100 Mg Cap) 100 mg PO BID [facility] Stop: 04/22/25 06:59 Last Admin: 04/19/25 09:12 Dose: 100 mg Fluticasone Furoate (Fluticasone Furoate 200mcg 14 Puffs/Inhaler) 1 puffs INH DAILY [facility] Stop: 05/17/25 08:59 Last Admin: 04/19/25 09:10 Dose: 1 puffs Folic Acid (Folic Acid 1 Mg Tab) 1 mg PO DAILY [facility] Stop: 05/17/25 08:59 Last Admin: 04/19/25 09:14 Dose: 1 mg Gabapentin (Gabapentin 300 Mg Cap) 300 mg PO BID [facility] Stop: 05/16/25 20:59 Last Admin: 04/19/25 09:12 Dose: 300 mg Glucagon (Glucagon For Inj 1 Mg Vial) 1 mg SQ UD PRN; Protocol PRN Reason: Hypoglycemia Protocol Stop: 05/17/25 13:01 Glucose (Glucose 40% Gel 15 Gm Tube) 15 - 30 gm PO UD PRN; Protocol PRN Reason: Hypoglycemia Protocol Stop: 05/17/25 13:01 Glucose (Glucose 10 Tab/Tube) 4 - 8 tab PO UD PRN; Protocol PRN Reason: Hypoglycemia Protocol Stop: 05/17/25 13:01 Cefepime HCl (Maxipime 2000mg) 2,000 mg in 20 mls @ 5 mls/min IV Q12H [facility]; Protocol Stop: 04/21/25 14:59 Last Admin: 04/19/25 03:48 Dose: 5 mls/min Insulin Aspart (Insulin Aspart Per Unit Charge) 0 units SC ACHS [facility] Stop: 05/17/25 13:14 Last Admin: 04/19/25 12:36 Dose: 3 units Magnesium Hydroxide (Magnesium Hydroxide Susp 30 Ml Udc) 30 ml PO Q12H PRN PRN Reason: Constipation Stop: 05/16/25 18:23 Magnesium Oxide (Magnesium Oxide 400 Mg Tab) 400 mg PO BID@1100,1900 [facility] Stop: 05/16/25 20:59 Last Admin: 04/19/25 12:28 Dose: 400 mg Melatonin (Melatonin 3 Mg Tab) 9 mg PO HS PRN PRN Reason: Sleep Stop: 05/16/25 18:23 Last Admin: 04/18/25 22:11 Dose: 9 mg Metoprolol Succinate (Metoprolol Succ 25mg Ext Rel Tab) 75 mg PO BID [facility] Stop: 05/19/25 20:59 Miscellaneous (Carbohydrates For Hypoglycemia ) 15 - 30 gm PO UD PRN PRN Reason: Hypoglycemia Protocol Stop: 05/17/25 13:01 Multivitamins (Multivitamin Tab) 1 tab PO QAM [facility] Stop: 05/17/25 08:59 Last Admin: 04/19/25 09:13 Dose: 1 tab Pantoprazole Sodium (Pantoprazole 40 Mg Tab) 40 mg PO DAILYBB [facility] Stop: 05/17/25 06:29 Last Admin: 04/19/25 09:11 Dose: 40 mg Polyethylene Glycol (Polyethylene (Miralax) 17 Gm Pack) 17 gm PO DAILY PRN PRN Reason: Constipation Stop: 05/16/25 18:23 Prednisone (Prednisone 20 Mg Tab) 40 mg PO DAILY [facility] Stop: 04/21/25 09:01 Last Admin: 04/19/25 09:11 Dose: 40 mg Sodium Chloride (Sodium Chlor 7% 4 Ml Neb) 4 ml NEB BIDR [facility] Stop: 05/16/25 18:59 Last Admin: 04/19/25 07:09 Dose: 4 ml Thiamine HCl (Thiamine Hcl 100 Mg Tab) 100 mg PO DAILY [facility] Stop: 05/17/25 08:59 Last Admin: 04/19/25 09:13 Dose: 100 mg Umeclidinium/Vilanterol (Umeclidinium/Vilanterol 62.5/25mcg 7 Puffs/Inhaler) 1 puffs INH DAILY [facility] Stop: 05/17/25 08:59 Last Admin: 04/19/25 09:09 Dose: 1 puffs Vitamin D (Cholecalciferol 25 Mcg (1000 Units) Tab) 50 mcg PO DAILY [facility] Stop: 05/17/25 08:59 Last Admin: 04/19/25 09:10 Dose: 50 mcg
[2025-04-19] MEDS: METOPROLOL SUCC 25MG EXT REL TAB PO SCH (20:12)
[2025-04-20 07:36] VITALS: BP 144/92; RESP 19; TEMP 97.3; O2SAT 98
[2025-04-20 08:34] LABS: Hematocrit (blood only) 37.2 % (37.0-47.0); Hemoglobin 11.9 g/dl (12.0-16.0); Immature Granulocytes # (auto) 0.59 K/uL (0.01-0.20); Immature Granulocytes % (auto) 4.4 %; Mean Corpuscular Hemoglobin 33.6 pg (25.0-34.0); Mean Corpuscular Volume 105.1 fL (80.0-100.0); Platelet Count 309 K/uL (130-400); RDW Standard Deviation 56.2 fL (36.4-46.3); Red Blood Count 3.54 M/uL (4.20-5.40); White Blood Count 13.48 K/ul (4.8-10.8)
[2025-04-20 08:50] LABS: Anion Gap 5.0 (3-11); Blood Urea Nitrogen 41.0 mg/dl (6-23); Calcium 9.4 mg/dl (8.6-10.3); Carbon Dioxide 32.0 mmol/L (21-32); Chloride 99.0 mmol/L (98-107); Creatinine Clr Calc Pharmacy 48.9 ml/min; Glucose 168.0 mg/dl (70-99(Fasting)); Magnesium 2.1 mg/dl (1.7-2.4); Potassium 4.6 mmol/L (3.5-5.1); Sodium 136.0 mmol/L (136-145)
--- NOTE | 2025-04-20 08:59 | Hospitalist Progress Note ---
Date of Service April 20, 2025 Assessment & Plan (1) Atrial fibrillation with rapid ventricular response: Plan: 75 year old female with past medical history significant for COPD Stage II former smoker, CAD, HFpEF, Paroxysmal Afib on anticoagulation with Eliquis history of multiple ablations, HTN, CKD III, OA, macrocyctic anemia, PAD, h/o ETOH abuse, and others presenting with palpitations, cough. Transferred here from [facility] with tachycardia, heart rate 160's, palpitations, found to be in afib RVR and has been without rate control for over a week. Also with palpitations and nonproductive cough, feels like she can't get anything up. Patient was admitted to [facility] on 04/05/25 for weakness and fall s/p laminectomy 7 weeks prior to the fall. Imaging of right ankle showed nondisplaced right tib fib fracture. She was splinted with no surgical intervention. Hospitalization was complicated by a possible pneumonia and uti; discharged to [facility] on 04/10/25 for rehab. Patient was on sotalol BID dosing for Afib rate control, but this did not transfer when transitioning between facilities. Anticoagulation with Eliquis was given at [facility]. Afib RVR Admitted to PCU Tele ECHO w/ EF of 50-55%, no RWMA. TSH wnl Cardiology on board, edilberto cabral Started on Cardizem drip but the patient could not tolerate Currently on amiodarone, c/w metoprolol Heart rate is reasonably controlled around 90s today and the patient remains free from any cardiac symptoms Her heart rate is controlled and trampoline team coach cleared her from discharge Denies any cardiac symptoms and the heart rate is controlled with blood pressure control as well at 144/92 at the upper limit Acute Hypoxic Respiratory Failure 2/2 LLL pneumonia likely HAP: given recent hospitalization/rehab. Hypoxia noted, with 2 LPM requirement. Cefepime given in the ED-> will continue Cefepime for pseudomonas coverage; c/w doxy Biofire negative. wbc improving, pt afebrile, feels better w/ sob. 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 Prednisone 40mg po daily x 5 days. incentive spirometer and flutter valve for pulmonary toileting c/w duonebs, home trelegy. Clinically much better without any wheezing and saturating normally on 1 L nasal cannula Clinically improved No wheezing and no shortness of breath and minimal crackles bibasilar on examination HFpEF BNP 930 Continue home diuretic Defer to Cardiology for additional recs on diuretics TONO Creatinine has gone up to 1.30 Noted to have a total negative balance of 9 L since admission Will give her 1 L of normal saline cautiously and advised to drink more fluid Monitor PRP- kidney functions remained stable Electrolytes and kidney functions are better and stable Hyperglycemia: SSI, will get A1c DVT Ppx: on Eliquis Code status: Full PCP: Dr. Kevin Salazar Dispo:pt/ot (2) Pneumonia: (3) COPD (chronic obstructive pulmonary disease): (4) Acute and chronic respiratory failure: Admission and Anticipated Discharge Date Admission Date: April 16, 2025 Subjective The patient was seen and examined in telemetry unit She has been feeling much better today and remains weak and lethargic Denies any cough or any shortness of breath at rest Has been saturating normally on 1 L nasal cannula 04/19/2025 The patient was seen and examined in telemetry unit She has been complaining of pain in the back secondary to lying in bed most of the time She wants to participate in physical therapy but due to pain not being able to She has been accepted to facility likely to be transferred tomorrow 04/20/2025 The patient was seen and examined in telemetry unit She has been feeling much better remains weak and tired Minimal cough without any shortness of breath Has been saturating normally on room air She will be discharged to rehab this morning Review of Systems Review of Systems: all systems reviewed and are unremarkable except as noted below Physical Exam Physical Exam: sitting at the edge of the bed without any acute distress Constitutional: well developed, well nourished and + ill appearing Eyes: PERRL, conjunctivae normal, anicteric sclerae ENMT: external ear and nose normal, oropharynx normal Neck: trachea midline, no thyromegaly Respiratory: no respiratory distress Auscultation: + diminished lung sounds and + crackles ( occasional crackles bibasilarly, left more than right) Cardiovascular: Rate/Rhythm: + tachycardic and + irregularly irregular Heart Sounds: normal S1 and normal S2; no murmur Extremities: no edema Gastrointestinal (Abdomen): Inspection/Auscultation: normal bowel sounds; abdomen not distended Percussion/Palpation: abdomen soft; abdomen nontender Musculoskeletal: Right lower leg is in place Skin: Has generalized spontaneous bruising and is complicated by use of blood thinner Neurologic: normal touch/pain/proprioception, moves all extremities and + focal motor deficit Lymphatic: no cervical or axillary lymphadenopathy Results & Data Results & Data Vital Signs (Past 12 Hours) Vital Signs Temp Pulse Pulse Resp BP Pulse Ox O2 Del Method 04/20/25 08:08 90 04/20/25 07:35 36.3 C L 101 H 19 144/92 H 98 Nasal Cannula 04/20/25 07:20 93 H 18 93 Room Air 04/20/25 03:41 36.5 C 107 H 18 133/84 90 Room Air, Nasal Cannula 04/19/25 23:33 36.6 C 98 H 18 119/81 94 Room Air 04/19/25 22:00 97 H O2 Flow Rate 04/20/25 08:08 04/20/25 07:35 04/20/25 07:20 04/20/25 03:41 1 04/19/25 23:33 04/19/25 22:00 Laboratory Results Short CBC 04/20/25 Range/Units 08:10 WBC 13.48 H (4.8-10.8) K/ul Hgb 11.9 L (12.0-16.0) g/dl Hct 37.2 (37.0-47.0) % Plt Count 309 (130-400) K/uL BMP 04/20/25 08:10 Sodium 136 Potassium 4.6 Chloride 99 Carbon Dioxide 32 BUN 41 H Creatinine 0.88 Glucose 168 H Calcium 9.4 Medications Administered Current Inpatient Medications Acetaminophen (Acetaminophen 325 Mg Tab) 650 mg PO Q4H PRN PRN Reason: Pain or Fever Stop: 05/16/25 18:23 Last Admin: 04/19/25 20:14 Dose: 650 mg Al Hydrox/Mg Hydrox/Simethicone (Aluminum/Magnesium Susp 30 Ml Udc) 15 ml PO Q4H PRN PRN Reason: Dyspepsia Stop: 05/16/25 18:23 Albuterol (Albuterol 0.083% Nebu Soln 3 Ml Vial) 2.5 mg NEB Q4R PRN; Protocol PRN Reason: Shortness Of Breath Or Wheezing Stop: 05/16/25 22:05 Last Admin: 04/17/25 17:49 Dose: 2.5 mg Apixaban (Apixaban 5 Mg Tablet) 5 mg PO BID [facility] Stop: 05/16/25 20:59 Last Admin: 04/20/25 08:43 Dose: 5 mg Aspirin (Aspirin 81 Mg Ectab) 81 mg PO DAILY [facility] Stop: 05/17/25 08:59 Last Admin: 04/20/25 08:44 Dose: 81 mg Dextrose (Dextrose 50% 50 Ml Syringe) 25 - 50 ml IV UD PRN; Protocol PRN Reason: Hypoglycemia Protocol Stop: 05/17/25 13:01 Diclofenac Sodium (Diclofenac Sod 1% Gel 100 Gm Tube) 2 gm EXT TID [facility]; Protocol Stop: 05/16/25 20:59 Last Admin: 04/20/25 08:46 Dose: 2 gm Digoxin (Digoxin 0.125 Mg Tab) 0.125 mg PO DAILY@1600 [facility] Stop: 05/18/25 09:14 Last Admin: 04/19/25 15:09 Dose: 0.125 mg Docusate Sodium (Docusate Sodium 100 Mg Cap) 100 mg PO BID PRN PRN Reason: Constipation Stop: 05/16/25 16:12 Last Admin: 04/16/25 21:37 Dose: 100 mg Doxycycline Hyclate (Doxycycline Hyclate 100 Mg Cap) 100 mg PO BID [facility] Stop: 04/22/25 06:59 Last Admin: 04/20/25 08:44 Dose: 100 mg Fluticasone Furoate (Fluticasone Furoate 200mcg 14 Puffs/Inhaler) 1 puffs INH DAILY [facility] Stop: 05/17/25 08:59 Last Admin: 04/20/25 08:45 Dose: 1 puffs Folic Acid (Folic Acid 1 Mg Tab) 1 mg PO DAILY [facility] Stop: 05/17/25 08:59 Last Admin: 04/20/25 08:44 Dose: 1 mg Gabapentin (Gabapentin 300 Mg Cap) 300 mg PO BID [facility] Stop: 05/16/25 20:59 Last Admin: 04/20/25 08:43 Dose: 300 mg Glucagon (Glucagon For Inj 1 Mg Vial) 1 mg SQ UD PRN; Protocol PRN Reason: Hypoglycemia Protocol Stop: 05/17/25 13:01 Glucose (Glucose 40% Gel 15 Gm Tube) 15 - 30 gm PO UD PRN; Protocol PRN Reason: Hypoglycemia Protocol Stop: 05/17/25 13:01 Glucose (Glucose 10 Tab/Tube) 4 - 8 tab PO UD PRN; Protocol PRN Reason: Hypoglycemia Protocol Stop: 05/17/25 13:01 Insulin Aspart (Insulin Aspart Per Unit Charge) 0 units SC ACHS [facility] Stop: 05/17/25 13:14 Last Admin: 04/20/25 08:25 Dose: 3 units Levofloxacin (Levofloxacin 750 Mg Tab) 750 mg PO DAILY@1100 [facility]; Protocol Stop: 04/25/25 10:59 Magnesium Hydroxide (Magnesium Hydroxide Susp 30 Ml Udc) 30 ml PO Q12H PRN PRN Reason: Constipation Stop: 05/16/25 18:23 Magnesium Oxide (Magnesium Oxide 400 Mg Tab) 400 mg PO BID@1100,1900 [facility] Stop: 05/16/25 20:59 Last Admin: 04/19/25 19:10 Dose: 400 mg Melatonin (Melatonin 3 Mg Tab) 9 mg PO HS PRN PRN Reason: Sleep Stop: 05/16/25 18:23 Last Admin: 04/19/25 20:16 Dose: 9 mg Metoprolol Succinate (Metoprolol Succ 25mg Ext Rel Tab) 75 mg PO BID [facility] Stop: 05/19/25 20:59 Last Admin: 04/20/25 08:42 Dose: 75 mg Miscellaneous (Carbohydrates For Hypoglycemia ) 15 - 30 gm PO UD PRN PRN Reason: Hypoglycemia Protocol Stop: 05/17/25 13:01 Multivitamins (Multivitamin Tab) 1 tab PO QAM [facility] Stop: 05/17/25 08:59 Last Admin: 04/20/25 08:44 Dose: 1 tab Pantoprazole Sodium (Pantoprazole 40 Mg Tab) 40 mg PO DAILYBB [facility] Stop: 05/17/25 06:29 Last Admin: 04/20/25 06:20 Dose: 40 mg Polyethylene Glycol (Polyethylene (Miralax) 17 Gm Pack) 17 gm PO DAILY PRN PRN Reason: Constipation Stop: 05/16/25 18:23 Prednisone (Prednisone 20 Mg Tab) 40 mg PO DAILY [facility] Stop: 04/21/25 09:01 Last Admin: 04/20/25 08:44 Dose: 40 mg Sodium Chloride (Sodium Chlor 7% 4 Ml Neb) 4 ml NEB BIDR [facility] Stop: 05/16/25 18:59 Last Admin: 04/20/25 07:18 Dose: 4 ml Thiamine HCl (Thiamine Hcl 100 Mg Tab) 100 mg PO DAILY [facility] Stop: 05/17/25 08:59 Last Admin: 04/20/25 08:45 Dose: 100 mg Umeclidinium/Vilanterol (Umeclidinium/Vilanterol 62.5/25mcg 7 Puffs/Inhaler) 1 puffs INH DAILY [facility] Stop: 05/17/25 08:59 Last Admin: 04/20/25 08:46 Dose: 1 puffs Vitamin D (Cholecalciferol 25 Mcg (1000 Units) Tab) 50 mcg PO DAILY [facility] Stop: 05/17/25 08:59 Last Admin: 04/20/25 08:44 Dose: 50 mcg
[2025-04-20 10:04] VITALS: PULSE 93
--- NOTE | 2025-04-20 16:54 | Discharge Summary ---
Date of Service April 20, 2025 Admission HPI Per Admitting Provider Patient is a 75 year old female with past medical history significant for COPD Stage II former smoker, CAD, HFpEF, Paroxysmal Afib on anticoagulation with Eliquis history of multiple ablations, HTN, CKD III, OA, macrocyctic anemia, PAD, h/o ETOH abuse, and others presenting with palpitations, cough. Transferred here from [facility] with tachycardia, heart rate 160's, palpitations, found to be in afib RVR and has been without rate control for over a week. Also with palpitations and nonproductive cough, feels like she can't get anything up. Patient was admitted to [facility] on 04/05/25 for weakness and fall s/p laminectomy 7 weeks prior to the fall. Imaging of right ankle showed nondisplaced right tib fib fracture. She was splinted with no surgical intervention. Hospitalization was complicated by a possible pneumonia and uti; discharged to [facility] on 04/10/25 for rehab. Patient was on sotalol BID dosing for Afib rate control, but this did not transfer when transitioning between facilities. Anticoagulation with Eliquis was given at [facility]. Denies chest pain, shortness of breath, N/V/D, focal deficits, numbness/tingling. In the emergency department, EKG showing atrial fibrillation with rapid ventricular response, rate 144 bpm, QTc 473. Diltiazem 15 mg given. Cardiology consulted for recommendations on resuming Sotalol and initially recommending resuming at half the regular dose with slow titration; however, BP's softer 80's/60's at times with HR 113-125. Given hypotension following diltiazem admin, recommendation for rate control with metoprolol suggested by Cardiology. Digoxin also given. Heart rates down to mid-70's. Leukocytosis noted on lab workup with WBC 12.87K. Opacity to left mid and lower lung found on Chest Xray. Hypoxia noted, with 2 LPM requirement. Biofire negative. 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 Cefepime given in the ED. History obtained primarily from the patient and via outside records from [facility]. Admission Exam Per Admitting Provider VITALS: Reviewed. WEIGHT/BMI reviewed. GEN: Healthy appearing, well-developed, NAD. PSYCH: Good Judgment. AOx3. Normal memory, mood, and affect. HEENT -Head: NC/AT; -Eyes: PERRL, EOMI. No discharge or redness; -Ears: External ears are normal. Normal TMs. -Nose: Normal nares. -Mouth and throat: MMM. Normal gums, mucosa, palate,. Good dentition. NECK: Supple, with no masses. CV: Irreg rhythm, tachycardic 120's, unable to appreciate murmurs, +peripheral swelling lower legs LUNGS: Diminished, no active coughing, supplem O2 ABD: Soft, NT/ND, NBS, no masses or organomegaly. : N/A SKIN: Warm, well perfused. Puple bruising throughout BLE and BUE MSK: RLE boot EXT: No clubbing, cyanosis, or edema. NEURO: Ambulating with no limitations. Normal muscle strength and tone. No focal deficits. Principal Diagnosis Atrial fibrillation with rapid ventricular response, pneumonia, COPD exacerbation Discharge Exam sitting at the edge of the bed without any acute distress Constitutional well developed, well nourished and + ill appearing Eyes PERRL, conjunctivae normal, anicteric sclerae ENMT external ear and nose normal, oropharynx normal Neck trachea midline, no thyromegaly Respiratory no respiratory distress Auscultation: + diminished lung sounds and + crackles ( occasional crackles bibasilarly, left more than right) Cardiovascular Rate/Rhythm: + tachycardic and + irregularly irregular Heart Sounds: normal S1 and normal S2; no murmur Extremities: no edema Gastrointestinal (Abdomen) Inspection/Auscultation: normal bowel sounds; abdomen not distended Percussion/Palpation: abdomen soft; abdomen nontender Neurologic normal touch/pain/proprioception, moves all extremities and + focal motor deficit Lymphatic no cervical or axillary lymphadenopathy Discharge Data Allergies Allergy/AdvReac Type Severity Reaction Status Date / Time adhesive tape Allergy Intermediate SKIN Verified 04/16/25 16:17 BLISTERED latex Allergy Intermediate SKIN Verified 04/16/25 16:17 BLISTERED furosemide [From Lasix] Allergy Unknown SEE COMMENT Verified 04/16/25 16:17 duloxetine AdvReac Intermediate Vomiting Verified 04/16/25 16:17 Consultations 04/16/25 15:20 ED Decision to Admit Stat 04/16/25 18:24 Consult Cardiology Routine Diabetes Follow up Diabetes Follow-up Needed for Newly Diagnosed Diabetes Hospital Course (1) Atrial fibrillation with rapid ventricular response: 75 year old female with past medical history significant for COPD Stage II former smoker, CAD, HFpEF, Paroxysmal Afib on anticoagulation with Eliquis history of multiple ablations, HTN, CKD III, OA, macrocyctic anemia, PAD, h/o ETOH abuse, and others presenting with palpitations, cough. Transferred here from [facility] with tachycardia, heart rate 160's, palpitations, found to be in afib RVR and has been without rate control for over a week. Also with palpitations and nonproductive cough, feels like she can't get anything up. Patient was admitted to [facility] on 04/05/25 for weakness and fall s/p laminectomy 7 weeks prior to the fall. Imaging of right ankle showed nondisplaced right tib fib fracture. She was splinted with no surgical intervention. Hospitalization was complicated by a possible pneumonia and uti; discharged to [facility] on 04/10/25 for rehab. Patient was on sotalol BID dosing for Afib rate control, but this did not transfer when transitioning between facilities. Anticoagulation with Eliquis was given at [facility]. Afib RVR Admitted to PCU Tele ECHO w/ EF of 50-55%, no RWMA. 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 Hypoxia noted, with 2 LPM requirement. Cefepime given in the ED-> will continue Cefepime for pseudomonas coverage; c/w doxy Biofire negative. wbc improving, pt afebrile, feels better w/ sob. 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 Prednisone 40mg po daily x 5 days. incentive spirometer and flutter valve for pulmonary toileting c/w duonebs, home trelegy. Clinically much better without any wheezing and saturating normally on 1 L nasal cannula Clinically improved No wheezing and no shortness of breath and minimal crackles bibasilar on examination HFpEF BNP 930 Continue home diuretic Defer to Cardiology for additional recs on diuretics TONO Creatinine has gone up to 1.30 Noted to have a total negative balance of 9 L since admission Will give her 1 L of normal saline cautiously and advised to drink more fluid Monitor PRP- kidney functions remained stable Electrolytes and kidney functions are better and stable Hyperglycemia: SSI, will get A1c DVT Ppx: on Eliquis Code status: Full PCP: Dr. Kevin Salazar Dispo:pt/ot (2) Pneumonia: (3) COPD (chronic obstructive pulmonary disease): (4) Acute and chronic respiratory failure: Total Time Total Time Spent Total Time Spent (In Minutes): 45 Minutes Discharge Plan Discharge Items Patient Disposition: [facility] Reason For Visit: AFIB Discharge Diagnosis: Atrial fibrillation with rapid ventricular response, pneumonia, COPD exacerbation Condition on Discharge: Fair Activity: Resume your previous activity Activity Comment: Continue PT and OT Non-emergency contact: Primary Care Provider Call non-emergency contact if: you have any medication questions and your symptoms worsen Follow-up/Referrals: Kevin Salazar, [Primary Care Provider] - (Please make an appointment with your PCP within 7 days following discharge from the facility) Diet: Carb Consistent or DM2, Heart Healthy and Low Sodium (2gm) Addtl Attending Provider Instructions: Please take precautions to avoid falls Finish the course of antibiotic as advised Take your medications as advised Continue physical therapy Please keep follow-up appointments with your healthcare providers 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 - Try to check your blood sugar 1x/day. - Try to change the time you check from day to day. - Great times to check are before any meal, 1-2 hours after any meal, and before bed. - You will need a prescription for a meter/supplies at time of discharge back home. Your insurance prefers FreeStyle Lite Meter, FreeStyle Lite Test Strips, and FreeStyle Lancets. 2.) Blood Sugar Targets: - Before Meals: 80-140 - 1-2 Hours After Meals: Below 180 - Please notify your provider of blood sugar levels frequently above these targets. 3.) Lifestyle. - Aim for regular/balanced meals thru day + extra protein to support continued recovery and strengthening. 4.) Diabetes Medications. - Suspect your hemoglobin A1c level is slightly higher than normal due to recent Prednisone use. - You recently started taking Farxiga/Jardiance, which was prescribed for your heart. - This medication can also help improve blood sugar levels. - There is a potential risk for UTIs while taking this medication so your provider will need to review risks/benefits of continuing since you recently developed a UTI. - Another diabetes medication option is Metformin; however, there is some concern that this medication may cause loose stools for some individuals, which is something that worries you since you already go to the bathroom frequently. Pending Studies at Discharge: No Stand-Alone Forms: My [facility] Skilled Items Patient informed of condition?: Yes DNR: No Discharge Level of Care: Skilled Communicable Disease: No Discharge Prognosis: Stable Lines: None Urinary Catheter: Yes Medications and DC Order Prescriptions: New digoxin [Digitek] 125 mcg (0.125 mg) Tablet 0.125 mg PO DAILY@1600 Qty: 30 0RF levofloxacin 750 mg Tablet 750 mg PO DAILY@1100 Qty: 3 0RF metoprolol succinate 50 mg tablet extended release 24 hr 75 mg PO BID Qty: 90 0RF Continued multivitamin Tablet 1 tab PO DAILY acetaminophen [Tylenol] 325 mg Tablet 650 mg PO Q4H PRN (Reason: Pain (Scale Score 1-3)) prednisone 10 mg Tablet 10 mg PO DIRECTED Rx Instructions: STARTED 04/14/25: 30 MG X 3 DAYS, THEN 20 MG X 3 DAYS, THEN 10 MG X 3 DAYS, ENDS 04/23/25 ipratropium-albuterol 0.5 mg-3 mg(2.5 mg base)/3 mL Solution For Nebulization 3 ml INHALATION QID albuterol sulfate 2.5 mg /3 mL (0.083 %) Solution For Nebulization 2.5 mg INHALATION Q6H PRN (Reason: Wheezing) ondansetron HCl 4 mg Tablet 4 mg PO Q6H PRN (Reason: NAUSEA/VOMITING) sennosides-docusate sodium [Senokot-S] 8.6-50 mg Tablet 1 tab-cap PO QDL PRN (Reason: Constipation) thiamine HCl (vitamin B1) [Vitamin B-1] 100 mg Tablet 100 mg PO DAILY melatonin 3 mg Tablet 9 mg PO HS aspirin 81 mg Tablet,Delayed Release (Dr/Ec) 81 mg PO DAILY tramadol 50 mg Tablet 50 mg PO Q12H PRN (Reason: Pain (Scale Score 4-10)) acetaminophen [Tylenol Extra Strength] 500 mg Tablet 500 mg PO Q4H PRN (Reason: FEVER >100.5) triamcinolone acetonide 0.1 % Cream 1 applic TOPICAL BID PRN (Reason: Rash) insulin aspart U-100 [Novolog U-100 Insulin aspart] 100 unit/mL Solution 1 sliding scale dose SUBCUT ACHS PRN (Reason: BSG CONTROL) Rx Instructions: BSG <70=HYPOGLYCEMIA PROTOCOL, BSG 70-130=0 UNITS, BSG 131-180=4 UNITS, 181- 240=8 UNITS, 241-300=10 UNITS, 301-350=12 UNITS, 351-400=16 UNITS, >400=CALL bisacodyl 10 mg Suppository 10 mg CA DAILY PRN (Reason: Constipation) pantoprazole 40 mg Tablet,Delayed Release (Dr/Ec) 40 mg PO DAILYBB losartan 25 mg Tablet 25 mg PO DAILY Fleet Enema 19-7 gram/118 mL Enema 118 ml CA DAILY PRN (Reason: Constipation) docusate sodium 100 mg Capsule 100 mg PO BID PRN (Reason: Constipation) gabapentin 300 mg Capsule 300 mg PO BID folic acid 1 mg Tablet 1 mg PO DAILY montelukast [Singulair] 10 mg Tablet 10 mg PO PM polyethylene glycol 3350 [Miralax] 17 gram/dose Powder 17 g PO QDL PRN (Reason: Constipation) Mucinex DM 30-600 mg Tablet Extended Release 12 Hr 1 tab PO Q12H sodium chloride 0.9 % (flush) [Normal Saline Flush] Syringe 5 ml IV Q8H Rx Instructions: administer before and after IV drug administration as part of [facility] protocol Saccharomyces boulardii [Florastor] 250 mg Capsule 500 mg PO BID diclofenac sodium 1 % Gel 2 g TOPICAL TID cholecalciferol (vitamin D3) [Vitamin D3] 50 mcg (2,000 unit) Capsule 50 mcg PO DAILY Eliquis 5 mg Tablet 5 mg PO BID Jardiance 10 mg Tablet 10 mg PO DAILY magnesium oxide 400 mg magnesium Tablet 400 mg PO BID Trelegy Ellipta 200-62.5-25 mcg Blister With Device 1 inh INHALATION DAILY Discontinued bumetanide 2 mg Tablet 2 mg PO DAILYBB potassium chloride 20 mEq Tablet,Er Particles/Crystals 20 meq PO DAILY Discharge Orders: Discharge Order (Routine); Ordered 04/20/25 Ordered By: Sumi Mac/Other Patient Handouts: Type 2 Diabetes Admission Data Admit Date/Time: 04/16/25 15:39 Attending Provider: Sumi Pendleton Admit Provider: Aly Anand Primary Care Provider: Kevin Salazar Other Providers: Aly Anand; Kenrick Sanchez Rishikesh
--- NOTE | 2025-04-22 07:34 | Electrocardiogram Report ---
Test Reason : Blood Pressure : */* mmHG Vent. Rate : 78 BPM Atrial Rate : * BPM P-R Int : * ms QRS Dur : 104 ms QT Int : 386 ms P-R-T Axes : * 15 141 degrees QTcB Int : 440 ms Atrial fibrillation Minimal voltage criteria for LVH, may be normal variant ( Kevin product ) Septal infarct (cited on or before 16-Apr-2025) Marked ST abnormality, possible lateral subendocardial injury Abnormal ECG When compared with ECG of 16-Apr-2025 12:58, Vent. rate has decreased by 66 bpm Confirmed by Luis Marion ([id number]) on 04/22/2025 7:34:43 AM Referred By: REFERRED SELF Confirmed By: Luis Marion
--- NOTE | 2025-04-22 07:36 | Electrocardiogram Report ---
Test Reason : Blood Pressure : */* mmHG Vent. Rate : 102 BPM Atrial Rate : * BPM P-R Int : * ms QRS Dur : 94 ms QT Int : 340 ms P-R-T Axes : * 33 195 degrees QTcB Int : 443 ms Atrial fibrillation with rapid ventricular response Abnormal ECG When compared with ECG of 19-Apr-2025 15:19, Criteria for Septal infarct are no longer Present Confirmed by Luis Marion ([id number] on 04/22/2025 7:35:51 AM Referred By: REFERRED SELF Confirmed By: Luis Marion
== END 2025-04-20 10:38 | DRG 193 ==
LOC: ED 12:50 → 2S 15:39 → SUATTDRO 15:39 → 2S 17:16